=== PATIENT | male | born 1975 | race African-American/Black ===

== ENCOUNTER 2024-10-16 18:17 | Inpatient (IN) | payer OTHER, SELFPAY ==
[2024-10-16] VITALS (10 sets, daily range): BP systolic 94–116; BP diastolic 48–84; BMI 26.1
--- NOTE | 2024-10-16 11:50 | ED.GENMED ---
ED Provider Triage
<Cindy Foley PA-C - Last Filed: 10/16/24 11:51>
-
Patient seen by provider in Triage?: Seen in Triage
Attestation: A medical screening examination has been initiated by a qualified medical provider. Based on the assessment performed at this time, it has been determined that an emergent medical condition may exist and the patient has been informed
that further medical evaluation and possible additional diagnostic testing may be needed.
HPI: 49yoM here from [facility] after missing the last 3-4 dialysis session. Reportedly has been refusing his dialysis. C/o diffuse body swelling and SOB.
GENERAL: Alert , in no apparent distress
EYE: No visual abnormalities.
NECK: Trachea midline
ENT: No visible abnormalities.
LUNGS: No acute respiratory distress
NEUROLOGICAL: Alert and oriented
SKIN: Skin intact. No visible changes.
MUSCULOSKELETAL: Moving extremities normally
PSYCH: Normal and appropriate interaction.
This is a medical evaluation conducted in person to initiate diagnostic evaluation and provide initial therapeutics. Please see further documentation by the treating clinician.
CBC, CMP, EKG, and CXR ordered.
History of Present Illness
<Cindy Foley PA-C - Last Filed: 10/16/24 11:51>
General
Chief Complaint: Swelling
Time Seen by Provider: 10/16/24 13:44
<Abdifatah Bonilla PA-C - Last Filed: 10/16/24 16:23>
History of Present Illness
History of Present Illness:
49-year-old male with history of end-stage renal disease on dialysis, atrial fibrillation, CHF, and hypertension presents to the emergency department from [facility] due to refusal of dialysis for the past 2 sessions. Patient
states that he does not want dialysis because his leg hurts, when questioned whether he wants to be on hospice and therefore forego all further dialysis he states 'no'. States that he fell at the retirement 'the other day'. Poor historian
Review of Systems
<Abdifatah Bonilla PA-C - Last Filed: 10/16/24 16:23>
Review of Systems
Allergies reviewed?: Yes
All Other Systems: ROS reviewed and negative except as documented in HPI and ROS
Phy Exam
<Abdifatah Bonilla PA-C - Last Filed: 10/16/24 16:23>
Physical Exam
Physical Exam:
GEN: Chronically ill-appearing
HEENT: Oral mucosa moist, no scleral icterus
Cardiac: Regular rate
Lung: No respiratory distress, no tachypnea
MSK: Shortened and externally rotated left lower extremity tenderness to palpation of the thigh and left knee
Skin: Numerous areas of skin breakdown to the extremities
Neuro: AO x3, moves all extremities freely
Psych: Calm, cooperative
Scores
<Abdifatah Bonilla PA-C - Last Filed: 10/16/24 16:23>
Heart Failure Risk
Heart Failure Risk Score: Not Applicable
Course
<Cindy Foley PA-C - Last Filed: 10/16/24 11:51>
Orders/Labs/Results
Orders:
Orders
10/16/24 11:49
Electrocardiogram (*1) Urgent
Reason for Study: Other
Other Reason for Exam: missed dialysis
EKG- Treatment ONCE
CR Chest Single View Urgent
Reason For Exam: SOB
10/16/24 13:50
CR Hip - LT w/wo Pel 2-3 Vw* Urgent
Comment:
Reason For Exam: fall, leg pain
Include a pelvis x-ray?: Yes
CR Knee - Left 4 Or More View* Urgent
Comment:
Reason For Exam: fall
10/16/24 15:26
Complete Blood Count/With Diff Urgent
Comprehensive Metabolic Panel Urgent
10/16/24 16:18
Piperacillin/Tazo 3.375 Gram [Zosyn] 3.375 gram in 50 ml IV NOW
10/16/24 16:19
Dextrose 10%/Water 500 ml [D10w] 250 ml IV 250 mls/hr
Abnormal Lab Results
10/16/24
15:26
WBC 18.3 H 10^3/uL
(4.8-10.8)
RBC 3.17 L 10^6/uL
(4.70-6.10)
Hgb 8.8 L g/dL
(13.0-18.0)
Hct 29.2 L %
(39.0-52.0)
MCHC 30.1 L g/dL
(33.0-37.0)
RDW 16.5 H %
(11.5-14.5)
Abs Immat Gran (auto) 0.1 H 10^3/uL
(0-0.05)
Absolute Neuts (auto) 17.1 H 10^3/uL
(1.4-6.5)
Absolute Lymphs (auto) 0.4 L 10^3/uL
(1.2-3.4)
Immature Gran % 0.8 H %
(0-0.5)
Neutrophils % 93.5 H %
(42.2-75.2)
Lymphocytes % 2.2 L %
(20.5-51.1)
Potassium 5.7 H mmol/L
(3.5-5.1)
Chloride 95 L mmol/L
(98-107)
BUN 51 H mg/dl
(9-20)
Creatinine 7.4 H* mg/dL
(0.7-1.3)
Glucose 45 L* mg/dl
(70-99)
Calcium 8.0 L mg/dl
(8.4-10.2)
Alkaline Phosphatase 173 H U/L
(38-126)
Albumin 3.3 L g/dl
(3.5-5.0)
10/16/24 15:26
10/16/24 15:26
Vital Signs
Initial and Last Documented VS:
Initial Vital Signs
Pulse BP
89 108/53
10/16/24 13:44 10/16/24 13:44
Last Documented Vital Signs
Pulse Resp BP Pulse Ox
67 16 99/84 98
10/16/24 16:00 10/16/24 16:00 10/16/24 14:30 10/16/24 16:00
<Abdifatah Bonilla PA-C - Last Filed: 10/16/24 16:23>
Orders/Labs/Results
Orders:
Orders
10/16/24 11:49
Electrocardiogram (*1) Urgent
Reason for Study: Other
Other Reason for Exam: missed dialysis
EKG- Treatment ONCE
CR Chest Single View Urgent
Reason For Exam: SOB
10/16/24 13:50
CR Hip - LT w/wo Pel 2-3 Vw* Urgent
Comment:
Reason For Exam: fall, leg pain
Include a pelvis x-ray?: Yes
CR Knee - Left 4 Or More View* Urgent
Comment:
Reason For Exam: fall
10/16/24 15:26
Complete Blood Count/With Diff Urgent
Comprehensive Metabolic Panel Urgent
10/16/24 16:18
Piperacillin/Tazo 3.375 Gram [Zosyn] 3.375 gram in 50 ml IV NOW
10/16/24 16:19
Dextrose 10%/Water 500 ml [D10w] 250 ml IV 250 mls/hr
Abnormal Lab Results
10/16/24
15:26
WBC 18.3 H 10^3/uL
(4.8-10.8)
RBC 3.17 L 10^6/uL
(4.70-6.10)
Hgb 8.8 L g/dL
(13.0-18.0)
Hct 29.2 L %
(39.0-52.0)
MCHC 30.1 L g/dL
(33.0-37.0)
RDW 16.5 H %
(11.5-14.5)
Abs Immat Gran (auto) 0.1 H 10^3/uL
(0-0.05)
Absolute Neuts (auto) 17.1 H 10^3/uL
(1.4-6.5)
Absolute Lymphs (auto) 0.4 L 10^3/uL
(1.2-3.4)
Immature Gran % 0.8 H %
(0-0.5)
Neutrophils % 93.5 H %
(42.2-75.2)
Lymphocytes % 2.2 L %
(20.5-51.1)
Potassium 5.7 H mmol/L
(3.5-5.1)
Chloride 95 L mmol/L
(98-107)
BUN 51 H mg/dl
(9-20)
Creatinine 7.4 H* mg/dL
(0.7-1.3)
Glucose 45 L* mg/dl
(70-99)
Calcium 8.0 L mg/dl
(8.4-10.2)
Alkaline Phosphatase 173 H U/L
(38-126)
Albumin 3.3 L g/dl
(3.5-5.0)
10/16/24 15:26
10/16/24 15:26
Vital Signs
Initial and Last Documented VS:
Initial Vital Signs
Pulse BP
89 108/53
10/16/24 13:44 10/16/24 13:44
Last Documented Vital Signs
Pulse Resp BP Pulse Ox
67 16 99/84 98
10/16/24 16:00 10/16/24 16:00 10/16/24 14:30 10/16/24 16:00
<Abdifatah Bonilla PA-C - Last Filed: 10/16/24 16:23>
MDM/Problems Addressed
MDM/Problems Addressed:
Patient identified to have a closed left intertrochanteric hip fracture from a fall earlier this week, specific time of the fall is unknown. He has been skipping dialysis for at least the last 2 sessions and is mildly hypokalemic as well as
hypoglycemic at this time. No indication for urgent dialysis. D10 infusion started for hypoglycemia. Will be admitted to the hospitalist service for further management, nephrology consulted for dialysis management. Broad-spectrum IV antibiotics
started due to significant leukocytosis and severe sacral decubitus ulcers, suspecting active infection.
<Abdifatah Bonilla PA-C - Last Filed: 10/16/24 16:23>
*Critical Care Note
Total Time (30-74mins, 75-104mins- exclusive of procedures): Not Applicable
ED Attending Note
<Cindy Foley PA-C - Last Filed: 10/16/24 11:51>
-
Portions of this chart may have been created with voice recognition software.� Occasional wrong word or��sound alike� substitutions may have occurred due to the inherent limitations of voice recognition software.
Discharge Plan
Departure
Patient Disposition: Admit
Date of Disposition: 10/16/24
Time of Disposition: 16:22
Admit to: Med/Surg
Presentation/result/management discussed w/ accepting MD/DO: Hospitalist
Discharge Problem:
ESRD on dialysis, Acute hyperkalemia, Hypoglycemia, Sacral decubitus ulcer, stage IV, Closed intertrochanteric fracture of left femur
Prescriptions:
No Action
silver sulfadiazine [Silvadene] 1 % Cream
1 applic TOPICAL DAILY
acetaminophen [Tylenol] 325 mg Tablet
650 mg PO Q6HPRN PRN (Reason: mild pain)
atorvastatin [Lipitor] 20 mg Tablet
20 mg PO DAILY
polyethylene glycol 3350 [Miralax] 17 gram Powder In Packet
17 g PO DAILYPRN PRN (Reason: constipation)
quetiapine 200 mg Tablet
200 mg PO HS
midodrine 5 mg Tablet
5 mg PO TIDPRN PRN (Reason: low bp)
midodrine 5 mg Tablet
5 mg PO TID
omeprazole 40 mg Capsule,Delayed Release(Dr/Ec)
40 mg PO DAILY
lorazepam 0.5 mg Tablet
0.5 mg PO TID
bisacodyl [Dulcolax (bisacodyl)] 10 mg Suppository
10 mg CA DAILYPRN PRN (Reason: if no bm aftr mom)
calcium polycarbophil [FiberCon] 625 mg Tablet
625 mg PO DAILY
metoprolol tartrate [Lopressor] 50 mg Tablet
50 mg PO BID
sertraline 25 mg Tablet
25 mg PO DAILY
gabapentin 100 mg Capsule
100 mg PO MoWeFr@[id number]
hydroxychloroquine [Plaquenil] 200 mg Tablet
200 mg PO HS
diltiazem HCl 60 mg Tablet
60 mg PO BID
sertraline 50 mg Tablet
50 mg PO HS
cinacalcet 60 mg Tablet
60 mg PO BID
sevelamer carbonate 800 mg Tablet
800 mg PO TID
quetiapine [Seroquel] 100 mg Tablet
100 mg PO DAILY
Referrals:
Goldy Reynolds DO [Family Provider] -
Interventions
Interventions:
*Risk Screen - Suicide Last Done: 10/16/24 11:39
*Neglect/Abuse Screening Last Done: 10/16/24 11:39
ED- Fall Risk Assessment Last Done: 10/16/24 15:14
ED- Cardiac Assessment Last Done: 10/16/24 15:14
ED- Pulmonary Assessment Last Done: 10/16/24 15:14
ED-Skin Assessment Last Done: 10/16/24 15:14
Discharge Date and Time
Print Language: SPANISH
--- NOTE | 2024-10-16 14:30 | EDRN ---
Pt refusing IV team and IV access, refusing bloodwork. PCP aware.
[2024-10-16 16:01] LABS: % Basophils 0.5 % (0-2); % Eosinophils 0.1 % (0-6); % Immature Granulocytes 0.8 % (0-0.5); % Lymphocytes 2.2 % (20.5-51.1); % Monocytes 2.9 % (1.7-9.3); % Neutrophils 93.5 % (42.2-75.2); Absolute Basophils 0.1 10^3/uL (0-0.2); Absolute Immature Granulocytes 0.1 10^3/uL (0-0.05); Absolute Lymphocytes 0.4 10^3/uL (1.2-3.4); Absolute Monocytes 0.5 10^3/uL (0.1-0.6); Absolute Neutrophils 17.1 10^3/uL (1.4-6.5); Hematocrit 29.2 % (39.0-52.0); Hemoglobin 8.8 g/dL (13.0-18.0); Mean Corp Hgb Conc. 30.1 g/dL (33.0-37.0); Mean Corpuscular Hgb 27.8 pg (27.0-31.0); Mean Corpuscular Volume 92.1 fL (80.0-94.0); Mean Platelet Volume 9.9 fL (7.4-10.4); Nucleated Red Blood Cells % 0 % (-); Platelet Count 215 10^3/uL (130-400); Red Blood Cell Count 3.17 10^6/uL (4.70-6.10); Red Cell Dist. Width 16.5 % (11.5-14.5); White Blood Cell Count 18.3 10^3/uL (4.8-10.8)
[2024-10-16 16:18] LABS: ALT (SGPT) 12 U/L (0-50); AST (SGOT) 22 U/L (17-59); Albumin 3.3 g/dl (3.5-5.0); Alkaline Phosphatase 173 U/L (38-126); Blood Urea Nitrogen 51 mg/dl (9-20); Carbon Dioxide 27 mmol/L (22-30); Chloride 95 mmol/L (98-107); Glucose 45 mg/dl (70-99); Potassium 5.7 mmol/L (3.5-5.1); Sodium 135 mmol/L (135-145); Total Bilirubin 1.1 mg/dl (0.2-1.3); Total Protein 7.2 g/dl (6.3-8.2); eGFR 8.35
[2024-10-16] MEDS: D10W 250 IV (16:21)
[2024-10-16] MEDS: ZOSYN 50 IV (16:21)
--- NOTE | 2024-10-16 16:37 | W.CON.NEPH ---
Consultation
-
Date/Time Consultation Requested: 10/16/2024 4:30 PM
Date/Time Consultation Performed: 10/16/2024 4:30 PM
Requesting Provider: Chad
Performing Provider: Dr. Juan
Reason for Consultation: ESRD
Medical History
-
Chief Complaint: ESRD
History of Present Illness:
The patient is a 49-year-old male with a past medical history of end-stage renal disease who dialyzes at [facility] every Sunday and Sunday. The patient has not been dialyzed since last Sunday and had continuously refused dialysis because
his left leg hurt him. He is maintained chronically on midodrine for hypotension and statin therapy for dyslipidemia. He is maintained on sevelamer for his hyperphosphatemia. On presentation he has profound edema and was found to have a left
intra trochanteric hip fracture. Apparently there had been a fall at the nursing. We were consulted for his volume overload and ESRD. Upon questioning patient about his past medical history and his end-stage renal disease he told me to go away.
Past Medical History
End-stage renal disease Sunday at [facility]
CHF
Chronic hypotension
Anemia of chronic kidney disease
Hyperphosphatemia
Left upper extremity AV fistula
Secondary hyperparathyroidism
Anxiety
Social History
Patient would not provide social history and told me to leave
Family History
Patient refused to answer
Family History: Not Pertinent
Allergies / Home Medications
Allergy/AdvReac Type Severity Reaction Status Date / Time
shellfish derived Allergy Unknown Verified 10/16/24 11:48
�Medication �Instructions �Recorded �Confirmed �Type
acetaminophen 325 mg tablet 650 mg PO Q6HPRN PRN mild pain 10/16/24 10/16/24 History
(Tylenol)
atorvastatin 20 mg tablet (Lipitor) 20 mg PO DAILY 10/16/24 10/16/24 History
bisacodyl 10 mg rectal suppository 10 mg MA DAILYPRN PRN if no bm 10/16/24 10/16/24 History
(Dulcolax (bisacodyl)) aftr mom
calcium polycarbophil 625 mg 625 mg PO DAILY 10/16/24 10/16/24 History
tablet (FiberCon)
cinacalcet 60 mg tablet 60 mg PO BID 10/16/24 10/16/24 History
diltiazem HCl 60 mg tablet 60 mg PO BID 10/16/24 10/16/24 History
gabapentin 100 mg capsule 100 mg PO [id number]@[id number]/16/24 10/16/24 History
hydroxychloroquine 200 mg tablet 200 mg PO HS 10/16/24 10/16/24 History
(Plaquenil)
lorazepam 0.5 mg tablet 0.5 mg PO TID 10/16/24 10/16/24 History
metoprolol tartrate 50 mg tablet 50 mg PO BID 10/16/24 10/16/24 History
(Lopressor)
midodrine 5 mg tablet 5 mg PO TID 10/16/24 10/16/24 History
midodrine 5 mg tablet 5 mg PO TIDPRN PRN low bp 10/16/24 10/16/24 History
omeprazole 40 mg capsule,delayed 40 mg PO DAILY 10/16/24 10/16/24 History
release
polyethylene glycol 3350 17 gram 17 g PO DAILYPRN PRN constipation 10/16/24 10/16/24 History
oral powder packet (Miralax)
quetiapine 100 mg tablet (Seroquel) 100 mg PO DAILY 10/16/24 10/16/24 History
quetiapine 200 mg tablet 200 mg PO HS 10/16/24 10/16/24 History
sertraline 25 mg tablet 25 mg PO DAILY 10/16/24 10/16/24 History
sertraline 50 mg tablet 50 mg PO HS 10/16/24 10/16/24 History
sevelamer carbonate 800 mg tablet 800 mg PO TID 10/16/24 10/16/24 History
silver sulfadiazine 1 % topical 1 applic topical DAILY b/l lower 10/16/24 10/16/24 History
cream (Silvadene) extremeti
Review of Systems
-
Unable to obtain full review of systems at this time due to: Other (Patient told me to leave him alone)
History Source: Patient
All other systems: Negative unless noted
Respiratory: No Symptoms
Musculoskeletal: Edema and Other (Left leg pain)
Skin: Other (Sacral decubitus)
Physical Exam
Vital Signs
Vital Signs
Pulse Resp BP Pulse Ox
84 12 110/58 98
10/16/24 16:15 10/16/24 16:15 10/16/24 16:07 10/16/24 16:00
Lab Results
10/16/24 15:26
10/16/24 15:26
WBC 18.3 10^3/uL (4.8-10.8) H 10/16/24 15:26
RBC 3.17 10^6/uL (4.70-6.10) L 10/16/24 15:26
Hgb 8.8 g/dL (13.0-18.0) L 10/16/24 15:26
Hct 29.2 % (39.0-52.0) L 10/16/24 15:26
Plt Count 215 10^3/uL (130-400) 10/16/24 15:26
Sodium 135 mmol/L (135-145) 10/16/24 15:26
Potassium 5.7 mmol/L (3.5-5.1) H 10/16/24 15:26
Chloride 95 mmol/L (98-107) L 10/16/24 15:26
Carbon Dioxide 27 mmol/L (22-30) 10/16/24 15:26
BUN 51 mg/dl (9-20) H 10/16/24 15:26
Creatinine 7.4 mg/dL (0.7-1.3) H* 10/16/24 15:
eGFR 8.35 10/16/24 15:
Glucose 45 mg/dl (70-99) L* 10/16/24 15:
Calcium 8.0 mg/dl (8.4-10.2) L 10/16/24 15:
Albumin 3.3 g/dl (3.5-5.0) L 10/16/24 15:
Physical Exam
General: AOx3 and No Distress
HEENT: PERRL, EOMI, Anicteric, Conjunctivae Clear (Pale), Ear/Nose Intact, Hearing Normal, Facial Symmetry, Neck Supple and No JVD
Respiratory: Other (Coarse bilaterally with decreased breath sounds to bases)
Cardiac: Regular Rate/Rhythm
Breast: Deferred by me
Abdomen: Soft and Nontender
Rectal: Deferred by Provider
Musculoskeletal: Edema (Brawny pitting edema of lower extremity)
Skin: Dry (Brawny textured edematous lower extremities) and Other (Sacral decub)
Hematologic/Lymphatic: No Cervical Lymphadenopathy, No Submandibular Lymphadenopathy and No Supraclavicular Lymphadenopathy
Psych: Other (Patient angry and swatting me away from him)
Vascular Access: AVF (Left upper extremity with good thrill and bruit)
Data Reviewed
-
Radiology: Report Reviewed by me (Chest x-ray personally reviewed showed interstitial edema bilaterally)
Medical Tests (Nuc Med, Echo etc): Other (EKG reviewed junctional rhythm at 91 bpm)
Labs: Labs Reviewed by me (BMP CBC)
Assessment/Plan
-
Impression:
Left intratrochanteric hip fracture
ESRD Sunday at [facility]
Hypotension history
Hyperkalemia
Anemia of chronic kidney disease
Secondary hyperparathyroidism
Sacral decubitus
Hyperphosphatemia
Left upper extremity AV fistula
Congestive heart failure
Plan:
Patient presents to hospital due to refusal for dialysis since last Sunday but incidentally found to have left hip fracture ([facility])
Despite volume overload and hyperkalemia, there is no need for acute dialysis this evening but he will be dialyzed first thing tomorrow morning
His potassium level was slightly elevated at 5.7 and Lokelma can be administered at 10 g for 3 doses
Maintain fluid restriction of 1500 cc daily as well as low sodium and potassium diet
Provide midodrine in setting of chronic hypotension
Will provide Hd treatment tomorrow for obvious volume overload as hemodynamically tolerated;, orders provided
Patient noted to have significant volume overload on exam and by chest x-ray however he is not currently hypoxic or on Oxygen
WIL therapy to provided for anemia
Maintain sevelamer for hyperphosphatemia and Cinacalcet for secondary hyperparathyroidism
--- NOTE | 2024-10-16 16:38 | HPS.HSE ---
Addendum entered and electronically signed by Adam Tolentino MD 10/16/24 18:40:
I saw and examined the patient.
The OIL PIT ATTENDANT's note was reviewed and I agree with the note.
Comment:
49-year-old male past medical history of valvular disease, schizophrenia, ESRD on hemodialysis for 20 years, chronic sacral wound unknown stage, chronic lower extremity wound unknown stage, ambulatory dysfunction, neuropathy, primary hypertension,
hyperlipidemia, who is presenting from [facility] as he was refusal of hemodialysis. Patient was also complaining of left hip pain and was found in the ER the patient has left femur fracture. Patient agreed for hemodialysis. Currently patient
is stated he is irritated and does not want to move. Patient is a poor historian. Called patient's AUNT who is the medical power of energy attorney who was able to feel when other medical details. Prior and patient has recently been refusing
hemodialysis and she was unclear of etiology. Stated patient has history of schizophrenia as a result he was not a candidate for renal transplant. And will be coming in from [place] on Sunday.
General in no acute distress
HEENT-neck is supple trach is midline. Suspected cataracts
Cardiac S1-S2 positive for murmur
Lungs clear to auscultation anteriorly
Abdomen positive bowel sound soft nondistended nontender
Extremities bilateral lower extremity covered in Joseph wrap. Patient denied for wounds to to be assessed
Psych calm
Neuro awake. Did not cooperate for complete neurological examination. Suspected cognitive impairment
A/P
ESRD on hemodialysis
Chronic hypotension
Hyperkalemia
Plan for hemodialysis per nephrology
Continue with midodrine
Left femur fracture
Check EKG-noted with severely prolonged QTc.
Check echocardiogram
Bedrest till evaluation by orthopedic
Pain control
Hypoglycemia
Hypoglycemia noted on BMP
Recommend Accu-Cheks
Patient mentating appropriately.
Hypoglycemia protocol.
Schizophrenia disorder
Due to prolonged QTc hold sertraline and Seroquel for now and plaquenil
Continue with Ativan
If further medication needed can uptitrate Ativan and may need to consider psych evaluation
Sacral and lower extremity wound unknown stage
IV antibiotic
Check a set of blood cultures
Wound consult
Anemia of chronic disease
Trend hemoglobin. IV iron and EPO per nephrology
Transfuse with hemoglobin less than 7
Secondary hyperparathyroidism
Continue with Phos binder
DVT prophylaxis SCDs till till surgery
Full code
Discussed with patient aundee Gar who is medical POA in detail. Aunt lives in [place] and is planning to fly in on Sunday to patient.
I spent a total of 80 minutes with the patient or on the floor. More than 50% of this time involved counseling and coordination of care.
Original Note:
Family Physician
-
Family Physician: Goldy Reynolds, DO
Chief Complaint
-
HD refusal
History of Present Illness
Patient is a 49-year-old male with past medical history significant for end-stage renal disease on dialysis, hypertension, atrial flutter, iron deficiency anemia, cerebral palsy, and unspecified mood disorder who presented to [place] ED for
evaluation of diffuse body swelling and shortness of breath. Patient is not cooperative with assessment. States he has no complaints and 'was at dialysis the other day.'
Medical History
Past Medical History
Past Medical History: Reports Other
Additional Past Medical History:
end-stage renal disease with HD
hypertension
GERD
atrial flutter
renal osteodystrophy
impulse disorder
unspecified mood disorder
iron deficiency anemia
PICA in adults
cerebral palsy
arteriovenous fistula of pulmonary vessels
endocarditis
hypotension
unspecified asthma
cyst of pancreas
Past Surgical History: Reports None
Social History
Unable to obtain full social history at this time due to: Patient Non-verbal (non responsive to questioning with this provider)
Family History
Family History: Not pertinent
Allergies / Home Medications
Allergies reflects when Allergies were last updated in [facility].
Home Medications with original date entered in [facility]
Allergy/Medication List:
Allergies
Allergy/AdvReac Type Severity Reaction Status Date / Time
shellfish derived Allergy Unknown Verified 10/16/24 11:48
Home Medications
acetaminophen 325 mg tablet (Tylenol) 650 mg PO Q6HPRN PRN mild pain 10/16/24
atorvastatin 20 mg tablet (Lipitor) 20 mg PO DAILY 10/16/24
bisacodyl 10 mg rectal suppository (Dulcolax (bisacodyl)) 10 mg [place] DAILYPRN PRN if no bm aftr mom 10/16/24
calcium polycarbophil 625 mg tablet (FiberCon) 625 mg PO DAILY 10/16/24
cinacalcet 60 mg tablet 60 mg PO BID 10/16/24
diltiazem HCl 60 mg tablet 60 mg PO BID 10/16/24
gabapentin 100 mg capsule 100 mg PO MoWeFr@[id number]/16/24
hydroxychloroquine 200 mg tablet (Plaquenil) 200 mg PO HS 10/16/24
lorazepam 0.5 mg tablet 0.5 mg PO TID 10/16/24
metoprolol tartrate 50 mg tablet (Lopressor) 50 mg PO BID 10/16/24
midodrine 5 mg tablet 5 mg PO TID 10/16/24
midodrine 5 mg tablet 5 mg PO TIDPRN PRN low bp 10/16/24
omeprazole 40 mg capsule,delayed release 40 mg PO DAILY 10/16/24
polyethylene glycol 3350 17 gram oral powder packet (Miralax) 17 g PO DAILYPRN PRN constipation 10/16/24
quetiapine 100 mg tablet (Seroquel) 100 mg PO DAILY 10/16/24
quetiapine 200 mg tablet 200 mg PO HS 10/16/24
sertraline 25 mg tablet 25 mg PO DAILY 10/16/24
sertraline 50 mg tablet 50 mg PO HS 10/16/24
sevelamer carbonate 800 mg tablet 800 mg PO TID 10/16/24
silver sulfadiazine 1 % topical cream (Silvadene) 1 applic topical DAILY b/l lower extremeti 10/16/24
Review of Systems
-
History Source: Patient
Constitutional: Reports No Symptoms
EENT: Reports No Symptoms
Respiratory: Reports Other (shortness of breath)
Cardiac: Reports No Symptoms
Abdomen/GI: Reports No Symptoms
: Reports No Symptoms
Musculoskeletal: Reports No Symptoms
Skin: Reports No Symptoms
Neurological: Reports No Symptoms
Endocrine: Reports No Symptoms
Hematologic/Lymphatic: Reports No Symptoms
Psych: Reports No Symptoms
Physical Exam
Vital Signs
Vital Signs
Pulse Resp BP Pulse Ox
84 12 110/58 98
10/16/24 16:15 10/16/24 16:15 10/16/24 16:07 10/16/24 16:00
Physical Exam
General: Well Developed, Well Nourished, No Apparent Distress and Comfortable
HEENT: NormoCephalic, Moist mucous membranes, Atraumatic, [place] Conjunctivae, Nose Appears Normal and Ears Appear Normal
Respiratory: Clear and Non Labored Respirations
Cardiac: S1/S2, Regular Rhythm and Murmur; No Rub or Gallop
GI: Soft, Non Tender, Non Distended and Normal Bowel Sounds; No Organomegaly
Rectal: Deferred by Provider
Genito-urinary: Deferred by me
Musculoskeletal: No Clubbing, No Cyanosis and No Edema
Skin: Warm and IV/Catheter Site; No Rash
Neuro: Awake and Nonfocal/grossly intact
Psych: Calm
Laboratory Results
-
10/16/24 15:26
10/16/24 15:26
Laboratory Results
Total Bilirubin 1.1 mg/dl (0.2-1.3) 10/16/24 15:26
AST 22 U/L (17-59) 10/16/24 15:26
ALT 12 U/L (0-50) 10/16/24 15:26
Alkaline Phosphatase 173 U/L (38-126) H 10/16/24 15:26
Data Reviewed
-
Diagnostic Radiology: Report Reviewed by me (CXR, Hip, Knee)
Medical Tests (Nuc Med, Echo, EKG etc): Report Reviewed by me (ekg: ACCELERATED JUNCTIONAL RHYTHM RIGHT AXIS DEVIATION POSSIBLE RIGHT VENTRICULAR HYPERTROPHY NONSPECIFIC T WAVE ABNORMALITY)
Lab Data: Labs Reviewed by me (WBC 18.3, Hgb 8.8, hct 29.2, K 5.7, BUN 51, Creat 7.4, Glucose 45)
Impression/Plan
-
IMPRESSION/PLAN:
#End-stage renal disease with dialysis
#mild hyperkalemia
dialysis --
[facility] reports has refused at least last two sessions
K+ 5.7, BUN 51, Creat 7.4
- Admit to telemetry
- Consult Nephrology
- follow BMP
- low potassium/low sodium diet with 1500cc fluid restriction
#intertrochanteric fracture of the left proximal femur without significant displacement or angulation.
s/p fall this week, exact fall information not available
Hip X-ray: Intertrochanteric fracture of the left proximal femur without significant displacement or angulation
- consult ortho
#leukocytosis
WBC 18.3
suspected infected sacral decub
bilateral lower extremity wounds
- blood cultures
- IV Zosyn
#prolong QTc
EKG: Vent. Rate : 091 BPM Atrial Rate : 000 BPM
P-R Int : 000 ms QRS Dur : 086 ms
QT Int : 460 ms P-R-T Axes : 000 117 144 degrees
QTc Int : 565 ms
Critical Test Result: Long QTc
ACCELERATED JUNCTIONAL RHYTHM
RIGHT AXIS DEVIATION
POSSIBLE RIGHT VENTRICULAR HYPERTROPHY
NONSPECIFIC T WAVE ABNORMALITY
- hold QT prolonging medications (hydroxychloroquine, quetiapine, sertraline)
- ECHO
- repeat EKG in AM
#hypertension
currently controlled 115/60
- continue metoprolol
#GERD
- continue omeprazole
#atrial flutter
- continue metoprolol
#impulse disorder
#unspecified mood disorder
- hold quetiapine, sertraline
- lorazepam PRN
#iron deficiency anemia
hgb 8.8, Hct 29.2
- monitor H/H
#hypotension
- continue midodrine
#renal osteodystrophy
#cerebral palsy
Code Status: Full Code
DVT Prophylaxis: Lovenox Sq
[2024-10-16] MEDS: MAGNESIUM SULFATE 100 IV (17:30)
[2024-10-16 19:59] LABS: Glucose - Point of Care 84 mg/dl (70-99)
[2024-10-16] MEDS: LOKELMA 10 GRAM PO (20:40)
[2024-10-16] MEDS: CARDIZEM SR PO (22:46)
[2024-10-16] MEDS: RENVELA 800 MG PO (22:47)
[2024-10-16] MEDS: SENSIPAR 60 MG PO (22:47)
[2024-10-16] MEDS: TYLENOL 650 MG PO (22:48)
[2024-10-16] MEDS: ATIVAN PO (22:49)
[2024-10-17 03:32] VITALS: BP 102/56
[2024-10-17 03:49] LABS: Glucose - Point of Care 64 mg/dl (70-99)
[2024-10-17 04:09] LABS: Glucose - Point of Care 77 mg/dl (70-99)
[2024-10-17] MEDS: LOKELMA 10 GRAM PO ×2 (05:40→15:32)
[2024-10-17] MEDS: ZOSYN 50 IV ×2 (05:40→19:32)
[2024-10-17 06:00] VITALS: BMI 26.2
[2024-10-17] MEDS: TYLENOL 650 MG PO ×2 (06:16→10:53)
[2024-10-17 07:30] VITALS: BP 117/53
[2024-10-17 07:38] LABS: Glucose - Point of Care 105 mg/dl (70-99)
[2024-10-17] MEDS: ProAmatine 5 MG PO ×4 (08:36→19:32)
[2024-10-17] MEDS: PROTONIX 40 MG PO (08:38)
[2024-10-17] MEDS: FIBERCON 625 MG PO (08:38)
[2024-10-17] MEDS: RETACRIT 10000 UNITS IV (08:40)
--- NOTE | 2024-10-17 08:56 | W.PN.UPDATE ---
Update Note
Progress Note Update
Full H and P to follow
Patient was seen this a.m.; has a nondisplaced intertrochanteric femur fracture however reports he is primarily wheelchair at baseline with chronic wounds of his bilateral lower extremities and decubitus area. Patient is on dialysis and time of
evaluation relatively poor historian. Will further discussed with family member in chart as well with patient for consideration of nonoperative versus operative treatment given his ambulatory baseline and nondisplaced nature of this fracture
[2024-10-17 09:05] LABS: Hematocrit 24.4 % (39.0-52.0); Hemoglobin 7.7 g/dL (13.0-18.0); Mean Corp Hgb Conc. 31.6 g/dL (33.0-37.0); Mean Corpuscular Hgb 27.7 pg (27.0-31.0); Mean Corpuscular Volume 87.8 fL (80.0-94.0); Mean Platelet Volume 10.4 fL (7.4-10.4); Platelet Count 189 10^3/uL (130-400); Red Blood Cell Count 2.78 10^6/uL (4.70-6.10); Red Cell Dist. Width 15.9 % (11.5-14.5); White Blood Cell Count 10.1 10^3/uL (4.8-10.8)
[2024-10-17 09:25] LABS: ALT (SGPT) 11 U/L (0-50); AST (SGOT) 19 U/L (17-59); Albumin 2.8 g/dl (3.5-5.0); Alkaline Phosphatase 147 U/L (38-126); Blood Urea Nitrogen 57 mg/dl (9-20); Calcium 7.6 mg/dl (8.4-10.2); Carbon Dioxide 25 mmol/L (22-30); Chloride 95 mmol/L (98-107); Estimated Creatinine Clearance 10 ml/min; Glucose 103 mg/dl (70-99); Potassium 5.6 mmol/L (3.5-5.1); Sodium 131 mmol/L (135-145); Total Bilirubin 0.7 mg/dl (0.2-1.3); Total Protein 6.4 g/dl (6.3-8.2); eGFR 8.63
--- NOTE | 2024-10-17 09:25 | W.PN.NEPH.HD ---
Progress Note - Hemodialysis
-
Date of Service: October 17, 2024
Duration: 3 hours (3.5)
Potassium Bath: 2
Calcium Bath: 2.5
Opti-Dialyzer: 160
Ultrafiltration: EDW
Blood Flow: 400
Dialysate Flow: 600
EPO: 10,000 units
[2024-10-17 10:21] LABS: Hepatitis B Surface Antigen Negative (Negative)
[2024-10-17] MEDS: ATIVAN 0.5 MG PO ×3 (10:54→21:29)
[2024-10-17] MEDS: SENSIPAR 60 MG PO ×2 (10:56→21:29)
--- NOTE | 2024-10-17 10:57 | W.PN.HOSP.TC ---
Today's Communication/Plan
-
Hemodialysis today
Echo pending
Wound care evaluation
Will await further orthopedic recs
Assessment / Plan
Assessment / Plan
General in no acute distress, appears chronically ill
HEENT-neck is supple trach is midline. Suspected cataracts
Cardiac S1-S2 positive for murmur
Lungs clear to auscultation anteriorly
Abdomen positive bowel sound soft nondistended nontender
Extremities bilateral lower extremity covered in Joseph wrap. Patient denied for wounds to to be assessed
MSK Left shortened leg internally rotated. Left upper extremity AV fistula.
Psych calm but easily gets agitated.
Neuro awake. Did not cooperate for complete neurological examination. Suspected cognitive impairment
A/P
#ESRD on hemodialysis
#Chronic hypotension
#Hyperkalemia
Plan for hemodialysis per nephrology
Continue with midodrine
K of 5.6 should improve with HD today.
#Left femur fracture
Check EKG-noted with severely prolonged QTc.
Repeat EKG on 10/17 with normal sinus rhythm with first-degree AV block. Nonspecific T wave abnormality. QTc 487 significantly improved from admission.
Echo pending for preop risk stratification. Otherwise patient without any coronary artery disease, diabetes mellitus. History of end-stage renal disease on dialysis. Patient is wheelchair-bound and unclear to stratify mobility. Patient is
intermediate risk for intermediate surgery for medically necessary surgery pending echocardiogram finding.
Bedrest till evaluation by orthopedic
Pain control
#Hypoglycemia
#Hypoglycemia noted on BMP
Recommend Accu-Cheks
Patient mentating appropriately.
Hypoglycemia protocol.
#Schizophrenia disorder
QTc is improving. Can slowly restart sertraline and Seroquel for now and plaquenil in 24 to 48 hours.
Continue with Ativan
If further medication needed can uptitrate Ativan and may need to consider psych evaluation
#Sacral and lower extremity wound unknown stage-poa
IV antibiotic and probably de-escalate stop in next 24 hours.
Check a set of blood cultures
Wound consult
#Anemia of chronic disease
Trend hemoglobin. IV iron and EPO per nephrology
Transfuse with hemoglobin less than 7
#Chronic murmur and valvular disease
Await ECHO
Secondary hyperparathyroidism
Continue with Phos binder
#Primary HTN
Hold lopressor for now
Cont with cardizem with hold parameters
Chronic vision problem/cataracts
DVT prophylaxis SCDs till till surgery
Full code
Discussed with patient aunt Rin who is medical POA in detail on 10/16. Aunt lives in [place] and is planning to fly in on Sunday to patient
Anticipated Discharge: > 48 hours
Subjective/Interval History
-
Date of Service: October 17, 2024
pt seen on HD today
no overnight events
had bm overnight
Objective Data
-
Labs:
Laboratory Results
10/17/24
08:33
WBC 10.1
Hgb 7.7 L
Hct 24.4 L
Plt Count 189
Sodium 131 L
Potassium 5.6 H
Chloride 95 L
Carbon Dioxide 25
BUN 57 H
Creatinine 7.2 H*
Glucose 103 H
Calcium 7.6 L
Total Bilirubin 0.7
AST 19
ALT 11
Alkaline Phosphatase 147 H
Vital Signs:
Vital Signs
Temp Pulse Resp BP Pulse Ox
98.6 F 83 18 117/53 100
10/17/24 07:30 10/17/24 07:30 10/17/24 07:30 10/17/24 07:30 10/17/24 07:30
I&O
10/16/24 10/17/24 10/18/24
06:59 06:59 06:59
Intake Total 480 / 480
Balance 480 / 480
Data Reviewed
-
Total Time Spent with Patient (in minutes): 55
[2024-10-17 11:13] LABS: Glucose - Point of Care 84 mg/dl (70-99)
[2024-10-17 11:27] VITALS: BP 114/38
[2024-10-17] MEDS: CARDIZEM SR 60 MG PO ×2 (12:10→19:33)
[2024-10-17] MEDS: LIPITOR 20 MG PO (12:10)
[2024-10-17] MEDS: RENVELA PO (12:12)
--- NOTE | 2024-10-17 13:33 | WOUNDNOTE ---
LEGS AND FEET
--- NOTE | 2024-10-17 13:33 | WOUNDNOTE ---
R LATERAL POSTERIOR LEG
--- NOTE | 2024-10-17 13:35 | WOUNDNOTE ---
LAUREANO RN note: Patient admitted with healing stage 4 sacral ulcer, closed L femur fracture.
See H&P for complete history. [facility]
PMH: cerebral palsy, a Flutter, CHF, HTN, neuropathy, ESRD, dialysis M-W-F and Schizophrenia.
Wound Location and type/assessment: Patient admitted with: Healing sacral stage 4 PI reported from ER and B/L buttock ulcers, suspect stage 3 PI. Sacrum with small shallow pink opening, scarring surrounding. L and R buttock base mostly pink mixed
with murphy slough and shallow. No odor and small drainage. When removed elton wraps and kerlix from legs, no open wounds visible. No drainage and no edema of legs, just very dry flaky skin on legs and feet. R lateral foot with callus and a few on
plantar feet, no drainage. Heels are intact. Turning assist with nurse Walker and PCT. Patient complained of pain, requiring lots of reassurance to get wound care done.
Appetite: good
Pressure redistribution devices in place: Accumax, called for [facility] air bed nurse will switch bed.
Plan: Silvadene already on order, dressings changed to sacrum and buttocks. Will order mineral oil for legs. Patient refused protective heels foams and pillow under calves. Nurse Walker will try and place on later, supply at bedside.
Will confirm orders with hospitalist and updated nurse. Updated care plan and will follow as needed.
Note to case management of equipment requested for discharge: air mattress if doesn't have already.
[2024-10-17 15:20] VITALS: BP 137/70
[2024-10-17] MEDS: RENVELA 800 MG PO ×2 (15:32→19:37)
[2024-10-17 15:33] VITALS: BMI 26.2
[2024-10-17] MEDS: SILVADENE 1 APPLIC TOPICAL (15:33)
[2024-10-17 16:30] LABS: Glucose - Point of Care 89 mg/dl (70-99)
[2024-10-17] MEDS: NEURONTIN 100 MG PO (19:36)
[2024-10-17 19:37] VITALS: BP 128/69
[2024-10-17 21:17] LABS: Glucose - Point of Care 85 mg/dl (70-99)
[2024-10-17] MEDS: SENOKOT-S 1 TABLET PO (21:29)
[2024-10-17 23:41] VITALS: BP 111/64
[2024-10-18 03:26] VITALS: BP 127/68
[2024-10-18] MEDS: ZOSYN 50 IV (05:24)
[2024-10-18 06:00] VITALS: BMI 26.1
[2024-10-18 07:15] VITALS: BP 145/71
[2024-10-18 07:45] LABS: Hematocrit 29.1 % (39.0-52.0); Hemoglobin 9.2 g/dL (13.0-18.0); Mean Corp Hgb Conc. 31.6 g/dL (33.0-37.0); Mean Corpuscular Hgb 27.8 pg (27.0-31.0); Mean Corpuscular Volume 87.9 fL (80.0-94.0); Mean Platelet Volume 10.3 fL (7.4-10.4); Platelet Count 207 10^3/uL (130-400); Red Blood Cell Count 3.31 10^6/uL (4.70-6.10); Red Cell Dist. Width 15.9 % (11.5-14.5); White Blood Cell Count 8.7 10^3/uL (4.8-10.8)
[2024-10-18 07:49] LABS: Glucose - Point of Care 59 mg/dl (70-99)
[2024-10-18] MEDS: SENSIPAR 60 MG PO ×2 (08:14→20:22)
[2024-10-18 08:15] LABS: ALT (SGPT) 12 U/L (0-50); AST (SGOT) 19 U/L (17-59); Albumin 3.1 g/dl (3.5-5.0); Alkaline Phosphatase 165 U/L (38-126); Blood Urea Nitrogen 29 mg/dl (9-20); Calcium 7.7 mg/dl (8.4-10.2); Carbon Dioxide 29 mmol/L (22-30); Chloride 94 mmol/L (98-107); Estimated Creatinine Clearance 17 ml/min; Glucose 74 mg/dl (70-99); Potassium 4.4 mmol/L (3.5-5.1); Sodium 134 mmol/L (135-145); Total Bilirubin 0.9 mg/dl (0.2-1.3); eGFR 16.49
[2024-10-18] MEDS: ProAmatine 5 MG PO (08:19)
[2024-10-18] MEDS: FIBERCON 625 MG PO (08:20)
[2024-10-18] MEDS: CARDIZEM SR 60 MG PO ×2 (08:20→20:21)
[2024-10-18] MEDS: RENVELA 800 MG PO ×3 (08:21→20:22)
[2024-10-18] MEDS: ATIVAN 0.5 MG PO ×3 (08:21→21:29)
[2024-10-18] MEDS: SENOKOT-S 1 TABLET PO ×2 (08:21→20:22)
[2024-10-18] MEDS: HYDROPHOR 1 APPLIC TOPICAL (08:22)
[2024-10-18] MEDS: PROTONIX 40 MG PO (08:22)
[2024-10-18] MEDS: LIPITOR 20 MG PO (08:22)
[2024-10-18 08:47] LABS: Glucose - Point of Care 77 mg/dl (70-99)
--- NOTE | 2024-10-18 09:52 | W.PN.NEPH.PH ---
Today's Communication / Plan
-
Dialysis tomorrow as we are on a holiday schedule
Assessment/Plan
-
Impression:
Left intratrochanteric hip fracture
ESRD Sunday at [facility]
Hypotension history
Hyperkalemia
Anemia of chronic kidney disease
Secondary hyperparathyroidism
Sacral decubitus
Hyperphosphatemia
Left upper extremity AV fistula
Congestive heart failure
Plan:
Patient presents to hospital due to refusal for dialysis since last Sunday but incidentally found to have left hip fracture (suspected fall at long-term)
Maintain fluid restriction of 1500 cc daily as well as low sodium and potassium diet
Provide midodrine in setting of chronic hypotension
Patient noted to have significant volume overload on exam and by chest x-ray however he is not currently hypoxic or on Oxygen
WIL therapy to provided for anemia
Maintain sevelamer for hyperphosphatemia and Cinacalcet for secondary hyperparathyroidism
No acute need for dialysis today will dialyze tomorrow off schedule for holiday
-
-
Date of Service: October 18, 2024
CC / HPI / ROS
-
Chief Complaint:
ESRD
History of Present Illness:
Femur fracture
Review of Systems:
No chest pain shortness of breath nausea vomiting left hip pain
Labs
-
Labs:
WBC 8.7 10^3/uL (4.8-10.8) 10/18/24 07:27
RBC 3.31 10^6/uL (4.70-6.10) L 10/18/24 07:27
Hgb 9.2 g/dL (13.0-18.0) L 10/18/24 07:27
Hct 29.1 % (39.0-52.0) L 10/18/24 07:27
Plt Count 207 10^3/uL (130-400) 10/18/24 07:27
Sodium 134 mmol/L (135-145) L 10/18/24 07:27
Potassium 4.4 mmol/L (3.5-5.1) 10/18/24 07:27
Chloride 94 mmol/L (98-107) L 10/18/24 07:27
Carbon Dioxide 29 mmol/L (22-30) 10/18/24 07:27
BUN 29 mg/dl (9-20) H 10/18/24 07:27
Creatinine 4.2 mg/dL (0.7-1.3) H* 10/18/24 07:27
eGFR 16.49 10/18/24 07:27
Glucose 74 mg/dl (70-99) 10/18/24 07:27
Calcium 7.7 mg/dl (8.4-10.2) L 10/18/24 07:27
Albumin 3.1 g/dl (3.5-5.0) L 10/18/24 07:27
Physical Exam
-
Vital Signs:
Vital Signs
Temp Pulse Resp BP Pulse Ox
98.6 F 93 18 145/71 94
10/18/24 07:15 10/18/24 07:15 10/18/24 07:15 10/18/24 07:15 10/18/24 07:15
Respiratory:: Bilateral: CTA
Lung Excursion:: Normal
Abdomen:: Soft
Bowel Sounds:: Normal
Extremity Edema:: +1: Bilateral:
Mueller Catheter: No
[2024-10-18 11:01] LABS: Glucose - Point of Care 70 mg/dl (70-99)
[2024-10-18 11:24] VITALS: BP 158/128
--- NOTE | 2024-10-18 11:29 | CON.ORTHO ---
Consultation
-
Date/Time Consultation Requested: 10/16/241753
Date/Time Consultation Performed: 10/17/2024
Requesting Provider: CLAY Ramirez
Performing Provider: TRACY Queen, Dr. Betito Mcdonald
Reason for Consultation: Left hip fracture
Consultation - Orthopedics
History
49-year-old male with significant past medical history of valvular disease, schizophrenia, end-stage renal disease with chronic sacral wound ulcers and lower extremity ulcers with ambulatory dysfunction and neuropathy [facility]. He also complains of left hip pain and was noted upon radiographs to have a nondisplaced intertrochanteric femur fracture. He reports he has continued pain about his left hip. History initially try to obtain during
dialysis; further history try to be obtained on 18 October 2024 with patient reporting a fall in the past week off of his porch.
He has a wheelchair present and yesterday reports he is primarily his wheelchair but today (10/18) reports the partial weight bearing with a cane
Allergies / Home Medications
Past Medical History: Reports Other
Additional Past Medical History:
end-stage renal disease with HD
hypertension
GERD
atrial flutter
renal osteodystrophy
impulse disorder
unspecified mood disorder
iron deficiency anemia
PICA in adults
cerebral palsy
arteriovenous fistula of pulmonary vessels
endocarditis
hypotension
unspecified asthma
cyst of pancreas
Past Surgical History: Reports None
Allergy/AdvReac Type Severity Reaction Status Date / Time
shellfish derived Allergy Unknown Verified 10/16/24 11:48
�Medication �Instructions �Recorded
acetaminophen 325 mg tablet 650 mg PO Q6HPRN PRN mild pain 10/16/24
(Tylenol)
atorvastatin 20 mg tablet (Lipitor) 20 mg PO DAILY High Cholesterol 10/16/24
bisacodyl 10 mg rectal suppository 10 mg [place] DAILYPRN PRN if no bm 10/16/24
(Dulcolax (bisacodyl)) aftr mom
calcium polycarbophil 625 mg 625 mg PO DAILY Constipation 10/16/24
tablet (FiberCon)
cinacalcet 60 mg tablet 60 mg PO BID Thyroid 10/16/24
diltiazem HCl 60 mg tablet 60 mg PO BID Heart 10/16/24
Disease/Condition
gabapentin 100 mg capsule 100 mg PO MoWeFr@2000 Neurological 10/16/24
Condition
hydroxychloroquine 200 mg tablet 200 mg PO HS Autoimmune Disorder 10/16/24
(Plaquenil)
lorazepam 0.5 mg tablet 0.5 mg PO TID Mental Health/Anxiety 10/16/24
metoprolol tartrate 50 mg tablet 50 mg PO BID Blood Pressure 10/16/24
(Lopressor)
midodrine 5 mg tablet 5 mg PO TID Blood Pressure 10/16/24
midodrine 5 mg tablet 5 mg PO TIDPRN PRN low bp 10/16/24
omeprazole 40 mg capsule,delayed 40 mg PO DAILY Gastrointestinal 10/16/24
release Issue
polyethylene glycol 3350 17 gram 17 g PO DAILYPRN PRN constipation 10/16/24
oral powder packet (Miralax)
quetiapine 100 mg tablet (Seroquel) 100 mg PO DAILY Mental 10/16/24
Health/Anxiety
quetiapine 200 mg tablet 200 mg PO HS Mental Health/Anxiety 10/16/24
sertraline 25 mg tablet 25 mg PO DAILY Mental 10/16/24
Health/Anxiety
sertraline 50 mg tablet 50 mg PO HS Mental Health/Anxiety 10/16/24
sevelamer carbonate 800 mg tablet 800 mg PO TID Phosphate Binder 10/16/24
silver sulfadiazine 1 % topical 1 applic topical DAILY b/l lower 10/16/24
cream (Silvadene) extremeti
Vital Signs / Lab Results
Temp Pulse Resp BP Pulse Ox
98.0 F 94 18 158/128 100
10/18/24 11:24 10/18/24 11:24 10/18/24 11:24 10/18/24 11:24 10/18/24 11:24
Focused examination of the left lower extremity shows chronic flaking and variable ulcers of his bilateral lower extremities with muscle atrophy. Distal neuropathy. No significant limb length discrepancy. Skin about the left hip is intact.
Discomfort with mild hip range of motion
Radiographs: X-rays taken of the pelvis as well as left knee were reviewed showing vascular calcifications. Suspect diffuse osteopenia and a nondisplaced intertrochanteric femur fracture
10/18/24 07:27
10/18/24 07:27
Assessment / Plan
49-year-old male with multiple medical comorbidities but most significantly schizophrenia and poor historian with reported cerebral palsy as well as end-stage renal disease with suspected minimal ambulatory status secondary to sacral ulcers, leg
atrophy and neuropathy with a nondisplaced left acute intertrochanteric femur fracture
-As discussed previously with the patient he would be high risk for operative invention and the primary purpose of the surgery is to improve ambulatory status; he may be better indicated for nonoperative treatment pending further clarification of
his ambulatory baseline
-Power of real estate attorney reported to arrive Sunday; there is no operative urgency at this timeframe
-Will continue with further discussion for operative consideration however for the time being recommended for nonoperative treatment which includes 6 weeks of nonweightbearing to the left lower extremity
-Pain, diet, and DVT prophylaxis per primary
-Orthopedic surgery will continue to follow
--- NOTE | 2024-10-18 11:56 | W.PN.UPDATE ---
Update Note
Progress Note Update
Patient was seen today. More interactive however history likely unreliable. Will have further discussion with family but not urgent for operating room. Plan/recommendations as per consultation report for likely nonoperative pending confirmation
of his weightbearing status at baseline of nonambulatory likely monitoring with serial radiographs weekly
--- NOTE | 2024-10-18 12:02 | W.PN.HOSP.TC ---
Today's Communication/Plan
-
Orthopedic recs for surgery timing
Hemodialysis per nephrology
Assistance with feeding
Check EKG for QTc
Assessment / Plan
Assessment / Plan
General in no acute distress, appears chronically ill
HEENT-neck is supple trach is midline. Suspected cataracts
Cardiac S1-S2 positive for murmur
Lungs clear to auscultation anteriorly
Abdomen positive bowel sound soft nondistended nontender
Extremities bilateral lower extremity covered in Joseph wrap. Patient denied for wounds to to be assessed
MSK Left shortened leg internally rotated. Left upper extremity AV fistula.
Psych calm but easily gets agitated.
Neuro awake. Did not cooperate for complete neurological examination. Suspected cognitive impairment
A/P
#ESRD on hemodialysis
#Chronic hypotension
#Hyperkalemia
Plan for hemodialysis per nephrology
Continue with midodrine
K of 4.4
HD schedule per nephrology.
#Left femur fracture
Check EKG-noted with severely prolonged QTc
Repeat EKG on 10/17 with normal sinus rhythm with first-degree AV block. Nonspecific T wave abnormality. QTc 487 significantly improved from admission.
Otherwise patient without any coronary artery disease, diabetes mellitus. History of end-stage renal disease on dialysis. Patient is wheelchair-bound and unclear to stratify mobility. Patient is intermediate risk for intermediate surgery for
medically necessary surgery and can proceed whenever.
Bedrest till evaluation by orthopedic
Surgery TBD
Pain control
#Hypoglycemia
#Hypoglycemia noted on BMP
Recommend Accu-Cheks
Patient mentating appropriately.
Hypoglycemia protocol.
Encouarge feeding and assistance w/ feeding
#Schizophrenia disorder
QTc is improving. Can slowly restart sertraline and Seroquel for now and plaquenil in 24 to 48 hours.
Continue with Ativan
If further medication needed can uptitrate Ativan and may need to consider psych evaluation
Repeat EKG. If QTc stable restart Seroquel and sertraline
#Sacral stage IV pressure injury present on admission
#
IV antibiotic and probably de-escalate stop in next 24 hours.
Check a set of blood cultures
Wound consult
#Anemia of chronic disease
Trend hemoglobin. IV iron and EPO per nephrology
Transfuse with hemoglobin less than 7
# Chronic HFpEF
#severe valvular tricuspid regurgitation
#Pulmonary hypertension
Echo 10/17 with normal left ventricular chamber size and systolic function. Normal regional wall motion. EF 55/60%. Stage III diastolic dysfunction. Moderate to severe tricuspid regurgitation. PASP of 83 mmHg.
Secondary hyperparathyroidism
Continue with Phos binder
#Primary HTN
Hold lopressor for now
Cont with cardizem with hold parameters
Chronic vision problem/cataracts
DVT prophylaxis SCDs till till surgery
Full code
Discussed with patient aunt Rin who is medical POA in detail on 10/16. Aunt lives in [place] and is planning to fly in on Sunday to patient
Anticipated Discharge: > 48 hours
Subjective/Interval History
-
Date of Service: October 18, 2024
Patient more awake and interactive with
States of left hip pain
States he is hungry and wants to eat
Objective Data
-
Labs:
Laboratory Results
10/18/24
07:27
WBC 8.7
Hgb 9.2 L
Hct 29.1 L
Plt Count 207
Sodium 134 L
Potassium 4.4
Chloride 94 L
Carbon Dioxide 29
BUN 29 H
Creatinine 4.2 H*
Glucose 74
Calcium 7.7 L
Total Bilirubin 0.9
AST 19
ALT 12
Alkaline Phosphatase 165 H
Vital Signs:
Vital Signs
Temp Pulse Resp BP Pulse Ox
98.0 F 94 18 158/128 100
10/18/24 11:24 10/18/24 11:24 10/18/24 11:24 10/18/24 11:24 10/18/24 11:24
I&O
10/17/24 10/18/24 10/19/24
06:59 06:59 06:59
Intake Total 480 / 480 1060 / 1060
Balance 480 / 480 1060 / 1060
Data Reviewed
-
Total Time Spent with Patient (in minutes): 55
[2024-10-18] MEDS: SILVADENE 1 APPLIC TOPICAL (12:49)
--- NOTE | 2024-10-18 13:11 | CM ---
CM reviewed chart, patient LTC resident at [facility], referral placed in [facility]. VM left for Beth, admissions at [facility] to review PLOF. Patient receives HD at facility, wheelchair bound. Orthopedic surgery following. Patients Aunt, POA, to
fly in Sunday. CM will continue to follow for all discharge planning needs.
Plan; return to [facility] LT when medically stable
[2024-10-18] MEDS: ProAmatine PO ×2 (13:49→17:19)
--- NOTE | 2024-10-18 14:56 | W.PN.UPDATE ---
Update Note
Progress Note Update
Patient seen and examined. Patient is a 49 yo male admitted from [facility] after refusing dialysis. Complained of left hip pain and radiographs revealed a nondisplaced left intertrochanteric hip fracture. Patient is communicating
but not focused and agree with suspected cognitive impairment. History obtained from POA (Aunt Rin) as well as nursing staff. Appears that the patient has not been ambulatory for some period of time due to his decubiti and possibly some early
contractures. Does complain of pain of the left hip and has pain associated with hygiene care. Patient appears cachetic. Patient with superficial decubiti about the sacrum and ischial tuberosities. Left leg shortened and externally rotated. Skin
about his lower extremities reveal wounds but no drainage. I spoke with his Aunt who requested that his hip be repaired surgically so that he could get rehab to walk again. I told her that I did not think ambulation was a realistic expectation and
that surgery could be performed with the many inherent risks and potential complications associated with surgery and his comorbities to try to alleviate pain to allow for nursing care. I have spoken with the lead dialysis nurse today. She states
that he will receive dialysis on Sunday and Sunday. His aunt will be visiting him on Sunday and I would like for her to see him prior to surgery as she stated that he was walking the last time she saw him. We will tentatively schedule surgery for
Sunday afternoon following dialysis.
[2024-10-18 15:55] VITALS: BP 122/59
[2024-10-18 17:22] LABS: Glucose - Point of Care 147 mg/dl (70-99)
[2024-10-18 19:30] VITALS: BP 125/62
[2024-10-18 21:26] LABS: Glucose - Point of Care 94 mg/dl (70-99)
[2024-10-18 23:38] VITALS: BP 124/64
[2024-10-19 03:30] VITALS: BP 148/72
[2024-10-19 06:00] VITALS: BMI 26.3
[2024-10-19] MEDS: ProAmatine 5 MG PO (07:45)
[2024-10-19 07:59] VITALS: BP 128/62
[2024-10-19 08:31] LABS: Glucose - Point of Care 85 mg/dl (70-99)
[2024-10-19 09:06] LABS: Hematocrit 24.6 % (39.0-52.0); Hemoglobin 7.8 g/dL (13.0-18.0); Mean Corp Hgb Conc. 31.7 g/dL (33.0-37.0); Mean Corpuscular Volume 88.2 fL (80.0-94.0); Mean Platelet Volume 9.9 fL (7.4-10.4); Platelet Count 254 10^3/uL (130-400); Red Blood Cell Count 2.79 10^6/uL (4.70-6.10); Red Cell Dist. Width 15.7 % (11.5-14.5); White Blood Cell Count 10.3 10^3/uL (4.8-10.8)
[2024-10-19 09:08] LABS: ALT (SGPT) 10 U/L (0-50); AST (SGOT) 17 U/L (17-59); Albumin 2.9 g/dl (3.5-5.0); Alkaline Phosphatase 150 U/L (38-126); Blood Urea Nitrogen 34 mg/dl (9-20); Calcium 7.7 mg/dl (8.4-10.2); Carbon Dioxide 28 mmol/L (22-30); Chloride 94 mmol/L (98-107); Estimated Creatinine Clearance 15 ml/min; Glucose 76 mg/dl (70-99); Potassium 4.6 mmol/L (3.5-5.1); Sodium 132 mmol/L (135-145); Total Bilirubin 0.7 mg/dl (0.2-1.3); Total Protein 6.7 g/dl (6.3-8.2)
[2024-10-19] MEDS: RETACRIT 10000 UNITS IV (09:29)
[2024-10-19] MEDS: TYLENOL 650 MG PO ×2 (10:10→16:44)
--- NOTE | 2024-10-19 10:22 | W.PN.ORTHO ---
Today's Communication / Plan
-
49-year-old male with multiple medical comorbidities but most significantly schizophrenia and poor historian with reported cerebral palsy as well as end-stage renal disease with suspected minimal ambulatory status secondary to sacral ulcers, leg
atrophy and neuropathy with a nondisplaced left acute intertrochanteric femur fracture
-See update note of Dr. Mcdonald- pending further discussion with pt and family/POA (his aunt) expected tomorrow for possible OR Sunday with Dr. Mcdonald for left hip fixation.
-Pain, diet, and DVT prophylaxis per primary
-Orthopedic surgery will continue to follow
Assessment
.
Dressing:
Clean, dry and intact.
Plan
.
Activity:
Out of bed.
PT/OT
Subjective
.
.:
Patient resting comfortably. On dialysis at time of rounding
Vital Signs and Labs
.
Vital Signs and Labs:
Lab Results
10/19/24 08:10
10/19/24 08:10
Temp Pulse Resp BP Pulse Ox
98.4 F 80 18 128/62 91
10/19/24 07:59 10/19/24 07:59 10/19/24 07:59 10/19/24 07:59 10/19/24 07:59
[2024-10-19 11:07] VITALS: BP 134/59
[2024-10-19 11:18] LABS: Glucose - Point of Care 94 mg/dl (70-99)
--- NOTE | 2024-10-19 12:06 | W.PN.NEPH.HD ---
Progress Note - Hemodialysis
-
Date of Service: October 19, 2024
Duration: 3 hours (3.5)
Potassium Bath: 2
Calcium Bath: 2.5
Opti-Dialyzer: 160
Ultrafiltration: EDW
Blood Flow: 400
Dialysate Flow: 600
EPO: 10,000 units
[2024-10-19] MEDS: ATIVAN PO (12:37)
[2024-10-19] MEDS: SENOKOT-S 1 TABLET PO ×2 (12:45→21:23)
[2024-10-19] MEDS: SENSIPAR 60 MG PO ×2 (12:45→22:56)
[2024-10-19] MEDS: RENVELA 800 MG PO ×3 (12:46→21:23)
[2024-10-19] MEDS: FIBERCON 625 MG PO (12:46)
[2024-10-19] MEDS: LIPITOR 20 MG PO (12:46)
[2024-10-19] MEDS: PROTONIX 40 MG PO (12:46)
[2024-10-19] MEDS: ProAmatine PO ×2 (12:47→16:44)
[2024-10-19] MEDS: SILVADENE 1 APPLIC TOPICAL (12:49)
[2024-10-19] MEDS: HYDROPHOR 1 APPLIC TOPICAL (12:51)
[2024-10-19] MEDS: CARDIZEM SR 60 MG PO ×2 (12:52→21:23)
--- NOTE | 2024-10-19 13:02 | W.PN.HOSP.TC ---
Today's Communication/Plan
-
OR tentative sunday
bedrest till surgery
HD per nephro
Trend cbc
restart Seroquel for severe mood disorder
Assessment / Plan
Assessment / Plan
General in no acute distress, appears chronically ill
HEENT-neck is supple trach is midline. Suspected cataracts
Cardiac S1-S2 positive for murmur
Lungs clear to auscultation anteriorly
Abdomen positive bowel sound soft nondistended nontender
Extremities bilateral lower extremity dry skin.
MSK Left shortened leg internally rotated. Left upper extremity AV fistula.
Psych calm but easily gets agitated.
Neuro awake. Did not cooperate for complete neurological examination. Suspected cognitive impairment
A/P
#ESRD on hemodialysis
#Chronic hypotension
#Hyperkalemia
Plan for hemodialysis per nephrology
Continue with midodrine
HD schedule per nephrology. Blood pressure holding. Plan for volume removal on dialysis.
#Left femur fracture
Check EKG-noted with severely prolonged QTc
Repeat EKG on 10/17 with normal sinus rhythm with first-degree AV block. Nonspecific T wave abnormality. QTc 487 significantly improved from admission.
Otherwise patient without any coronary artery disease, diabetes mellitus. History of end-stage renal disease on dialysis. Patient is wheelchair-bound and unclear to stratify mobility. Patient is intermediate risk for intermediate surgery for
medically necessary surgery and can proceed and monitor closely postop.
Bedrest till evaluation by orthopedic
Surgery tentative plan for sunday
Pain control
#Hypoglycemia
#Hypoglycemia noted on BMP
Recommend Accu-Cheks
Patient mentating appropriately.
Hypoglycemia protocol.
Encourage feeding and assistance w/ feeding
#Schizophrenia disorder
QTc is improving. Can slowly restart sertraline and plaquenil in 24 to 48 hours.
Continue with Ativan
If further medication needed can uptitrate Ativan and may need to consider psych evaluation
Repeat EKG with stable QTc of 469. Restart Seroquel on high dose 100mg AM/200mg PM.
#Sacral stage IV pressure injury present on admission
# Bilateral buttocks ulcer suspected stage III PI POA
Blood cultures negative. Stop IV antibiotics.
Wound consult
#Anemia of chronic disease
Trend hemoglobin. IV iron and EPO per nephrology
Transfuse with hemoglobin less than 7
# Chronic HFpEF
#severe valvular tricuspid regurgitation
#Pulmonary hypertension
Echo 10/17 with normal left ventricular chamber size and systolic function. Normal regional wall motion. EF 55/60%. Stage III diastolic dysfunction. Moderate to severe tricuspid regurgitation. PASP of 83 mmHg.
Secondary hyperparathyroidism
Continue with Phos binder
#Primary HTN
Hold lopressor for now
Cont with cardizem with hold parameters
Chronic vision problem/cataracts
DVT prophylaxis SCDs till till surgery
Full code
Discussed with patient aunt Rin who is medical POA in detail on 10/16. Aunt lives in [place] and is planning to come in [facility] to see patient and d/w with orthopedic
Anticipated Discharge: > 48 hours
Subjective/Interval History
-
Date of Service: October 19, 2024
seen on HD
intermittent left hip pain
wants vic
Objective Data
-
Labs:
Laboratory Results
10/19/24
08:10
WBC 10.3
Hgb 7.8 L
Hct 24.6 L
Plt Count 254 D
Sodium 132 L
Potassium 4.6
Chloride 94 L
Carbon Dioxide 28
BUN 34 H
Creatinine 4.9 H*
Glucose 76
Calcium 7.7 L
Total Bilirubin 0.7
AST 17
ALT 10
Alkaline Phosphatase 150 H
Vital Signs:
Vital Signs
Temp Pulse Resp BP Pulse Ox
98.3 F 91 20 134/59 94
10/19/24 11:07 10/19/24 11:07 10/19/24 11:07 10/19/24 11:07 10/19/24 11:07
I&O
10/18/24 10/19/24 10/20/24
06:59 06:59 06:59
Intake Total 1060 / 1060 240 / 240
Balance 1060 / 1060 240 / 240
Data Reviewed
-
Total Time Spent with Patient (in minutes): 55
[2024-10-19 15:03] VITALS: BP 124/73
[2024-10-19] MEDS: ATIVAN 0.5 MG PO ×2 (15:53→21:23)
[2024-10-19 15:54] LABS: Glucose - Point of Care 77 mg/dl (70-99)
[2024-10-19 19:45] VITALS: BP 130/59
[2024-10-19] MEDS: DILAUDID 0.25 MG IV (20:33)
[2024-10-19] MEDS: SEROQUEL 200 MG PO (21:23)
[2024-10-19 21:56] LABS: Glucose - Point of Care 84 mg/dl (70-99)
[2024-10-19 23:17] VITALS: BP 136/67
[2024-10-20 03:02] VITALS: BP 101/51
[2024-10-20 06:00] VITALS: BMI 25.9
[2024-10-20] MEDS: DILAUDID 0.25 MG IV ×2 (06:15→11:51)
[2024-10-20 07:37] VITALS: BP 100/52
[2024-10-20] MEDS: RENVELA 800 MG PO ×3 (08:01→21:42)
[2024-10-20] MEDS: SENOKOT-S 1 TABLET PO ×2 (08:01→21:42)
[2024-10-20] MEDS: SENSIPAR 60 MG PO ×2 (08:01→21:42)
[2024-10-20] MEDS: FIBERCON 625 MG PO (08:01)
[2024-10-20] MEDS: LIPITOR 20 MG PO (08:01)
[2024-10-20] MEDS: PROTONIX 40 MG PO (08:01)
[2024-10-20] MEDS: ATIVAN 0.5 MG PO ×3 (08:01→21:41)
[2024-10-20] MEDS: SEROQUEL 100 MG PO (08:01)
[2024-10-20] MEDS: ProAmatine 5 MG PO ×2 (08:02→17:15)
[2024-10-20] MEDS: CARDIZEM SR PO (08:02)
[2024-10-20 08:04] LABS: Glucose - Point of Care 121 mg/dl (70-99)
[2024-10-20] MEDS: HYDROPHOR 1 APPLIC TOPICAL (08:04)
[2024-10-20] MEDS: SILVADENE 1 APPLIC TOPICAL (08:06)
--- NOTE | 2024-10-20 10:14 | W.PN.HOSP.TC ---
Today's Communication/Plan
-
Doppler ultrasound bilateral lower extremities
N.p.o. after midnight
Assessment / Plan
Assessment / Plan
General in no acute distress, appears chronically ill
HEENT-neck is supple trach is midline. Suspected cataracts
Cardiac S1-S2 positive for murmur
Lungs clear to auscultation anteriorly
Abdomen positive bowel sound soft nondistended nontender
Extremities bilateral lower extremity dry skin. Significant bilateral lower extremity edema, worse on the left
MSK Left shortened leg internally rotated. Left upper extremity AV fistula.
Psych calm but easily gets agitated.
Neuro awake. Did not cooperate for complete neurological examination. Suspected cognitive impairment
ESRD on hemodialysis
Chronic hypotension
Hyperkalemia
Plan for hemodialysis per nephrology
Continue with midodrine
HD schedule per nephrology. Blood pressure holding. Plan for volume removal on dialysis.
Acute Left femur fracture
Check EKG-noted with severely prolonged QTc
Repeat EKG on 10/17 with normal sinus rhythm with first-degree AV block. Nonspecific T wave abnormality. QTc 487 significantly improved from admission.
Otherwise patient without any coronary artery disease, diabetes mellitus. History of end-stage renal disease on dialysis. Patient is wheelchair-bound and unclear to stratify mobility. Patient is intermediate risk for intermediate surgery for
medically necessary surgery and can proceed and monitor closely postop.
Bedrest till evaluation by orthopedic
Surgery tentative plan for sunday
Pain control
Check Doppler ultrasound bilateral lower extremity given significant edema.
Hypoglycemia
Hypoglycemia noted on BMP
Recommend Accu-Cheks
Patient mentating appropriately.
Hypoglycemia protocol.
Encourage feeding and assistance w/ feeding
Schizophrenia disorder
QTc is improving. Can slowly restart sertraline and plaquenil in 24 to 48 hours.
Continue with Ativan
If further medication needed can uptitrate Ativan and may need to consider psych evaluation
Repeat EKG with stable QTc of 469. Restart Seroquel on high dose 100mg AM/200mg PM.
Sacral stage IV pressure injury present on admission
Bilateral buttocks ulcer suspected stage III PI POA
Blood cultures negative. Stop IV antibiotics.
Wound consult
Chronic anemia due to ESRD
Trend hemoglobin. IV iron and EPO per nephrology
Transfuse with hemoglobin less than 7
Chronic HFpEF
Severe valvular tricuspid regurgitation
Pulmonary hypertension
Echo 10/17 with normal left ventricular chamber size and systolic function. Normal regional wall motion. EF 55/60%. Stage III diastolic dysfunction. Moderate to severe tricuspid regurgitation. PASP of 83 mmHg.
Secondary hyperparathyroidism
Continue with Phos binder
Essential HTN
Hold lopressor for now
Cont with cardizem with hold parameters
Chronic vision problem/cataracts
DVT prophylaxis SCDs till till surgery
Full code
Dr. Tolentino discussed with patient aunt Rin who is medical POA in detail on 10/16. Aunt lives in [place] and is planning to come in today to see patient and d/w with orthopedic
Anticipated Discharge: > 48 hours
Subjective/Interval History
-
Date of Service: October 20, 2024
Patient seen and examined. No complaints.
Objective Data
-
Vital Signs:
Vital Signs
Temp Pulse Resp BP Pulse Ox
98.7 F 97 20 100/52 93
10/20/24 07:37 10/20/24 07:37 10/20/24 07:37 10/20/24 08:02 10/20/24 07:37
I&O
10/19/24 10/20/24 10/21/24
06:59 06:59 06:59
Intake Total 240 / 240 1320 / 1320
Output Total 0 / 0
Balance 240 / 240 1320 / 1320
Review of Systems
-
History Source: Patient
All other systems: Reviewed and negative
[2024-10-20 10:35] VITALS: BP 126/71
--- NOTE | 2024-10-20 10:41 | W.PN.UPDATE ---
Addendum entered and electronically signed by Betito Mcdonald MD 10/20/24 13:09:
Patient seen and examined. No significant changes. Spoke with Aunt who is POA who is enroute to see the patient. I have spoken at length with her and requested that she see the patient prior to surgery. I have spoken to Dr. Barrientos about timing
with hemodialysis and surgery. Current plan is for surgery tomorrow after dialysis pending Aunt's visit today. Risks, complications, benefits and postop expectations discussed with his Aunt. Anesthesia notified that they may want to evaluate the
patient prior to anticipated surgery tomorrow. Consent signed by myself and on the chart. Aunt to sign consent on visit and knows that I can be contacted if she has any further questions. Patient is NPO for surgery.
Original Note:
Update Note
Progress Note Update
Mr. Baron was minimally conversational and focused this AM. He is a 49-year-old male with multiple medical comorbidities, most significantly schizophrenia and ESRD. He is a poor historian with suspected minimal ambulatory status secondary to
sacral ulcers, leg atrophy and neuropathy,with a nondisplaced left acute intertrochanteric femur fracture
Again, please see progress note from Dr. Mcdonald (Oct 21 @ [id number])- pending further discussion with pt and family/POA (his aunt Rin), who is expected in town today to see her nephew. Will have a tentative plan for (possible) OR tomorrow (Sunday)
with Dr. Mcdonald for left hip fixation. I have made him NPO pMN tonight in anticipation of surgery tomorrow. Will make sure to consent for surgery/blood once his Aunt/POA (Rin) is able to see him and make a final decision. Orthopedic surgery will
continue to follow
[2024-10-20 11:47] LABS: Glucose - Point of Care 135 mg/dl (70-99)
[2024-10-20 13:49] VITALS: BP 127/78
[2024-10-20] MEDS: ProAmatine PO (13:49)
--- NOTE | 2024-10-20 14:43 | CM ---
CM reviewed chart, per Beth, Admissions at [facility], patient is not LTC, in process of becoming LTC resident, facility is working with Aunt on this. [facility] requesting auth for patient to return, will need PT/OT orders: JESSICA [place] [facility]:
[phone], Dr. Reynolds: [phone]. Per chart, patient for tentative OR tomorrow. CM will continue to follow for all discharge planning needs.
Plan; return to [facility] when medically stable, will need insurance auth
[facility]: [id number], Dr. Reynolds: [id number]
[2024-10-20] MEDS: TYLENOL 650 MG PO ×2 (15:37→21:42)
[2024-10-20 16:19] VITALS: BP 117/58
[2024-10-20 16:37] LABS: Glucose - Point of Care 79 mg/dl (70-99)
--- NOTE | 2024-10-20 18:21 | W.PN.NEPH.PH ---
Today's Communication / Plan
-
HD tomorrow
Assessment/Plan
-
Impression:
Left intratrochanteric hip fracture
ESRD Sunday at [facility]
Hypotension history
Hyperkalemia
Anemia of chronic kidney disease
Secondary hyperparathyroidism
Sacral decubitus
Hyperphosphatemia
Left upper extremity AV fistula
Congestive heart failure
Plan:
Patient presents to hospital due to refusal for dialysis but incidentally found to have left hip fracture (suspected fall at assisted)
plan HD tomorrow and OR after for hip surg-d/w ortho
Maintain fluid restriction of 1200 cc daily as well as low sodium and potassium diet
cont midodrine in setting of chronic hypotension
vol status seem stable on RA, CXR noted on admit
WIL therapy to provided for anemia
Maintain sevelamer for hyperphosphatemia and Cinacalcet for secondary hyperparathyroidism
-
-
Date of Service: October 20, 2024
CC / HPI / ROS
-
Chief Complaint:
ESRD
History of Present Illness:
Femur fracture
no fever, last hb 7.8 10/19
BP stable
Review of Systems:
No nausea vomiting
left hip pain-refuses to touched in legs
poor historian
Labs
-
Labs:
WBC 10.3 10^3/uL (4.8-10.8) 10/19/24 08:10
RBC 2.79 10^6/uL (4.70-6.10) L 10/19/24 08:10
Hgb 7.8 g/dL (13.0-18.0) L 10/19/24 08:10
Hct 24.6 % (39.0-52.0) L 10/19/24 08:10
Plt Count 254 10^3/uL (130-400) D 10/19/24 08:10
Sodium 132 mmol/L (135-145) L 10/19/24 08:10
Potassium 4.6 mmol/L (3.5-5.1) 10/19/24 08:10
Chloride 94 mmol/L (98-107) L 10/19/24 08:10
Carbon Dioxide 28 mmol/L (22-30) 10/19/24 08:10
BUN 34 mg/dl (9-20) H 10/19/24 08:10
Creatinine 4.9 mg/dL (0.7-1.3) H* 10/19/24 08:10
eGFR 13.70 10/19/24 08:10
Glucose 76 mg/dl (70-99) 10/19/24 08:10
Calcium 7.7 mg/dl (8.4-10.2) L 10/19/24 08:10
Albumin 2.9 g/dl (3.5-5.0) L 10/19/24 08:10
Physical Exam
-
Vital Signs:
Vital Signs
Temp Pulse Resp BP Pulse Ox
98.3 F 103 20 117/58 96
10/20/24 16:19 10/20/24 16:19 10/20/24 16:19 10/20/24 17:15 10/20/24 16:19
Cardiovascular:: Regular rate and rhythm
Respiratory:: Bilateral: CTA (anteriorly)
Lung Excursion:: Normal
Abdomen:: Nontender and Soft
Extremity Edema:: +1: Bilateral:
Mueller Catheter: No
[2024-10-20 19:50] VITALS: BP 122/62
[2024-10-20] MEDS: CARDIZEM SR 60 MG PO (21:42)
[2024-10-20] MEDS: SEROQUEL 200 MG PO (21:42)
[2024-10-20] MEDS: NEURONTIN 100 MG PO (21:48)
[2024-10-20 22:08] LABS: Glucose - Point of Care 188 mg/dl (70-99)
[2024-10-21] VITALS (18 sets, daily range): BP systolic 96–155; BP diastolic 45–109; BMI 25.9
[2024-10-21 05:38] LABS: Glucose - Point of Care 79 mg/dl (70-99)
--- NOTE | 2024-10-21 06:27 | PTCARENOTE ---
pt washed and chg wipes completed. wound care completed. pt accucheck 78.
[2024-10-21] MEDS: LIPITOR 20 MG PO (07:13)
[2024-10-21] MEDS: ProAmatine 5 MG PO (07:13)
[2024-10-21] MEDS: PROTONIX 40 MG PO (07:13)
[2024-10-21] MEDS: CARDIZEM SR PO (07:14)
[2024-10-21] MEDS: HYDROPHOR TOPICAL (07:14)
[2024-10-21] MEDS: ATIVAN PO ×2 (07:14→17:42)
[2024-10-21] MEDS: RENVELA PO ×2 (07:15→17:42)
[2024-10-21] MEDS: FIBERCON PO (07:15)
[2024-10-21] MEDS: SENOKOT-S PO (07:15)
[2024-10-21] MEDS: SILVADENE TOPICAL (07:16)
[2024-10-21] MEDS: SEROQUEL PO (07:16)
[2024-10-21] MEDS: SENSIPAR PO (07:16)
--- NOTE | 2024-10-21 07:46 | W.PN.UPDATE ---
Update Note
Progress Note Update
Patient currently undergoing dialysis. He is scheduled for open reduction internal fixation left hip fracture later this morning with Dr. Mcdonald. Remain n.p.o. for now and Silke on-call to operating room. Surgical location and consents signed.
[2024-10-21 08:10] LABS: Glucose - Point of Care 78 mg/dl (70-99)
[2024-10-21] MEDS: RETACRIT 10000 UNITS IV (09:19)
[2024-10-21 09:23] LABS: Blood Urea Nitrogen 23 mg/dl (9-20); Calcium 7.7 mg/dl (8.4-10.2); Carbon Dioxide 30 mmol/L (22-30); Chloride 93 mmol/L (98-107); Estimated Creatinine Clearance 19 ml/min; Glucose 66 mg/dl (70-99); Potassium 4.4 mmol/L (3.5-5.1); Sodium 130 mmol/L (135-145)
[2024-10-21 11:37] LABS: Glucose - Point of Care 61 mg/dl (70-99)
[2024-10-21] MEDS: DEXTROSE 50% SYRINGE 12.5 GRAMS IV (11:40)
--- NOTE | 2024-10-21 11:55 | W.PN.NEPH.HD ---
Assessment
-
pt seen during HD
vitals stable
UF as tolerates
for OR after HD
AVF functions well
Progress Note - Hemodialysis
-
Date of Service: October 21, 2024
Duration: 30 minutes and 3 hours
Potassium Bath: 2
Calcium Bath: 2.5
Opti-Dialyzer: 160
Ultrafiltration: Other (2-2.5kg)
Blood Flow: 400
Dialysate Flow: 600
Heparin: no
EPO: [id number]
--- NOTE | 2024-10-21 12:00 | PTCARENOTE ---
Pt finished HD. Accu check 61. Pt asymptomatic. 1/2 amp of D50 given and repeat accu check 98. Report given to Purvi in OR. Will call for transport to OR.
[2024-10-21 12:03] LABS: Glucose - Point of Care 98 mg/dl (70-99)
--- NOTE | 2024-10-21 12:22 | W.PN.HOSP.TC ---
Today's Communication/Plan
-
OR today
Assessment / Plan
Assessment / Plan
General in no acute distress, appears chronically ill
HEENT-neck is supple trach is midline. Suspected cataracts
Cardiac S1-S2 positive for murmur
Lungs clear to auscultation anteriorly
Abdomen positive bowel sound soft nondistended nontender
Extremities bilateral lower extremity dry skin. Significant bilateral lower extremity edema, worse on the left
MSK Left shortened leg internally rotated. Left upper extremity AV fistula.
Psych calm but easily gets agitated.
Neuro awake. Did not cooperate for complete neurological examination. Suspected cognitive impairment
ESRD on hemodialysis
Chronic hypotension
Hyperkalemia
Plan for hemodialysis per nephrology
Continue with midodrine
HD schedule per nephrology. Blood pressure holding. Plan for volume removal on dialysis.
Acute Left femur fracture
Check EKG-noted with severely prolonged QTc
Repeat EKG on 10/17 with normal sinus rhythm with first-degree AV block. Nonspecific T wave abnormality. QTc 487 significantly improved from admission.
Otherwise patient without any coronary artery disease, diabetes mellitus. History of end-stage renal disease on dialysis. Patient is wheelchair-bound and unclear to stratify mobility. Patient is intermediate risk for intermediate surgery for
medically necessary surgery and can proceed and monitor closely postop.
Bedrest till evaluation by orthopedic
Awaiting surgery today after dialysis.
Bilateral lower extremity Doppler ultrasound negative for DVT.
Hypoglycemia -check a.m. cortisol.
Hypoglycemia noted on BMP
Recommend Accu-Cheks
Patient mentating appropriately.
Hypoglycemia protocol.
Encourage feeding and assistance w/ feeding
Schizophrenia disorder
QTc is improving. Can slowly restart sertraline and plaquenil in 24 to 48 hours.
Continue with Ativan
If further medication needed can uptitrate Ativan and may need to consider psych evaluation
Repeat EKG with stable QTc of 469. Restart Seroquel on high dose 100mg AM/200mg PM.
Sacral stage IV pressure injury present on admission
Bilateral buttocks ulcer suspected stage III PI POA
Blood cultures negative. Stop IV antibiotics.
Wound consult
Chronic anemia due to ESRD
Trend hemoglobin. IV iron and EPO per nephrology
Transfuse with hemoglobin less than 7
Chronic HFpEF
Severe valvular tricuspid regurgitation
Pulmonary hypertension
Echo 10/17 with normal left ventricular chamber size and systolic function. Normal regional wall motion. EF 55/60%. Stage III diastolic dysfunction. Moderate to severe tricuspid regurgitation. PASP of 83 mmHg.
Secondary hyperparathyroidism
Continue with Phos binder
Essential HTN
Hold lopressor for now
Cont with cardizem with hold parameters
Chronic vision problem/cataracts
DVT prophylaxis SCDs
Full code
Anticipated Discharge: > 48 hours
Subjective/Interval History
-
Date of Service: October 21, 2024
Patient seen and examined. No complaints.
Objective Data
-
Labs:
Laboratory Results
10/21/24 10/21/24
07:01 08:00
WBC Pending
Hgb Pending
Hct Pending
Plt Count Pending
Sodium 130 L
Potassium 4.4
Chloride 93 L
Carbon Dioxide 30
BUN 23 H
Creatinine 3.7 H
Glucose 66 L
Calcium 7.7 L
Vital Signs:
Vital Signs
Temp Pulse Resp BP Pulse Ox
98.3 F 103 20 107/57 96
10/21/24 11:15 10/21/24 11:15 10/21/24 11:15 10/21/24 11:15 10/21/24 11:15
I&O
10/20/24 10/21/24 10/22/24
06:59 06:59 06:59
Intake Total 1320 / 1320 720 / 720
Output Total 0 / 0
Balance 1320 / 1320 720 / 095
Review of Systems
-
History Source: Patient
All other systems: Reviewed and negative
--- NOTE | 2024-10-21 13:41 | CM ---
Patient seen at bedside earlier. Patient for OR today per nursing. Patient to return to [facility] and will need auth prior to return. [facility] requesting auth for patient to return, per chart review; will need PT/OT orders: ANÍBALI [facility]:
[id number], Dr. Reynolds: [id number]. CM will continue to follow for discharge planning needs.
Plan; return to SNF; will need authorization. will need updated pt/ot s/p surgery
[2024-10-21 13:48] LABS: Glucose - Point of Care 44 mg/dl (70-99)
[2024-10-21 13:53] LABS: Cortisol, Random 13.4 ug/dl
[2024-10-21 14:27] LABS: Glucose - Point of Care 108 mg/dl (70-99)
[2024-10-21 15:54] LABS: Glucose - Point of Care 77 mg/dl (70-99)
[2024-10-21 16:53] LABS: Hematocrit 24.5 % (39.0-52.0); Hemoglobin 7.7 g/dL (13.0-18.0)
[2024-10-21 17:09] LABS: Glucose - Point of Care 75 mg/dl (70-99)
--- NOTE | 2024-10-21 17:17 | PTCARENOTE ---
Pt arrived to [facility] [address] from PACU s/p L HIP ORIF. Pt dressing C/D/I, NV intact. Pt oriented to call harris and room, bed locked and in lowest position, call harris within reach.
[2024-10-21] MEDS: ProAmatine PO ×2 (17:20)
[2024-10-21] MEDS: COLACE 100 MG PO (20:36)
[2024-10-21] MEDS: SENSIPAR 60 MG PO (20:36)
[2024-10-21] MEDS: SENOKOT-S 1 TABLET PO (20:36)
[2024-10-21] MEDS: CARDIZEM SR 60 MG PO (20:36)
[2024-10-21] MEDS: RENVELA 800 MG PO (22:02)
[2024-10-21] MEDS: ATIVAN 0.5 MG PO (22:02)
[2024-10-21] MEDS: SEROQUEL 200 MG PO (22:02)
[2024-10-22 01:58] LABS: Glucose - Point of Care 83 mg/dl (70-99)
[2024-10-22 03:15] VITALS: BP 112/87
[2024-10-22 06:00] VITALS: BMI 25.9
[2024-10-22 07:52] LABS: Glucose - Point of Care 111 mg/dl (70-99)
[2024-10-22 08:14] VITALS: BP 117/54
[2024-10-22 09:49] VITALS: BP 105/81; PULSE 100
[2024-10-22 10:20] LABS: % Basophils 0.1 % (0-2); % Immature Granulocytes 0.6 % (0-0.5); % Monocytes 7.5 % (1.7-9.3); % Neutrophils 86.8 % (42.2-75.2); Absolute Immature Granulocytes 0.1 10^3/uL (0-0.05); Absolute Lymphocytes 0.5 10^3/uL (1.2-3.4); Absolute Monocytes 0.7 10^3/uL (0.1-0.6); Absolute Neutrophils 8.1 10^3/uL (1.4-6.5); Hematocrit 24.8 % (39.0-52.0); Hemoglobin 7.5 g/dL (13.0-18.0); Mean Corp Hgb Conc. 30.2 g/dL (33.0-37.0); Mean Corpuscular Hgb 28.3 pg (27.0-31.0); Mean Corpuscular Volume 93.6 fL (80.0-94.0); Nucleated Red Blood Cells % 0 % (-); Platelet Count 248 10^3/uL (130-400); Red Blood Cell Count 2.65 10^6/uL (4.70-6.10); Red Cell Dist. Width 16.3 % (11.5-14.5); White Blood Cell Count 9.4 10^3/uL (4.8-10.8)
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
[2024-10-22] MEDS: DILAUDID 0.25 MG IV (11:15)
[2024-10-22] MEDS: CARDIZEM SR 60 MG PO (11:21)
[2024-10-22] MEDS: SENSIPAR 60 MG PO ×2 (11:21→20:50)
[2024-10-22] MEDS: ATIVAN 0.5 MG PO ×3 (11:26→21:04)
[2024-10-22] MEDS: SEROQUEL 100 MG PO (11:26)
[2024-10-22] MEDS: COLACE 100 MG PO ×2 (11:26→20:50)
[2024-10-22 11:27] VITALS: BP 117/88
[2024-10-22] MEDS: ProAmatine 5 MG PO (11:27)
[2024-10-22] MEDS: RENVELA 800 MG PO ×3 (11:27→21:04)
[2024-10-22] MEDS: PROTONIX 40 MG PO (11:27)
[2024-10-22] MEDS: SENOKOT-S 1 TABLET PO ×2 (11:28→20:50)
[2024-10-22] MEDS: LIPITOR 20 MG PO (11:28)
[2024-10-22] MEDS: HYDROPHOR 1 APPLIC TOPICAL (11:29)
[2024-10-22] MEDS: SILVADENE 1 APPLIC TOPICAL (11:29)
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
--- NOTE | 2024-10-22 13:22 | W.PN.NEPH.PH ---
Today's Communication / Plan
-
possible HD tomorrow based on his dispo plan
Assessment/Plan
-
Impression:
Left intratrochanteric hip fracture
ESRD Sunday at [facility]
Hypotension history
Hyperkalemia
Anemia of chronic kidney disease
Secondary hyperparathyroidism
Sacral decubitus
Hyperphosphatemia
Left upper extremity AV fistula
Congestive heart failure
Plan:
Patient presents to hospital due to refusal for dialysis but incidentally found to have left hip fracture (suspected fall at [facility])
s/p ORIF on 10/21, last HD yesterday
plan HD tomorrow if pt is for d/c
Maintain fluid restriction of 1200 cc daily as well as low sodium and potassium diet
cont midodrine in setting of chronic hypotension
vol status seem stable on RA
WIL therapy to provided for anemia
Maintain sevelamer for hyperphosphatemia and Cinacalcet for secondary hyperparathyroidism
-
-
Date of Service: October 22, 2024
CC / HPI / ROS
-
Chief Complaint:
ESRD
History of Present Illness:
Femur fracture
no fever, hb 7.5
BP stable
Review of Systems:
No nausea vomiting
left hip pain-refuses to touching in legs
poor historian
Labs
-
Labs:
WBC 9.4 10^3/uL (4.8-10.8) 10/22/24 09:36
RBC 2.65 10^6/uL (4.70-6.10) L 10/22/24 09:36
Hgb 7.5 g/dL (13.0-18.0) L 10/22/24 09:36
Hct 24.8 % (39.0-52.0) L 10/22/24 09:36
Plt Count 248 10^3/uL (130-400) 10/22/24 09:36
Sodium 130 mmol/L (135-145) L 10/21/24 08:00
Potassium 4.4 mmol/L (3.5-5.1) 10/21/24 08:00
Chloride 93 mmol/L (98-107) L 10/21/24 08:00
Carbon Dioxide 30 mmol/L (22-30) 10/21/24 08:00
BUN 23 mg/dl (9-20) H 10/21/24 08:00
Creatinine 3.7 mg/dL (0.7-1.3) H 10/21/24 08:00
eGFR 19.20 10/21/24 08:00
Glucose 66 mg/dl (70-99) L 10/21/24 08:00
Calcium 7.7 mg/dl (8.4-10.2) L 10/21/24 08:00
Albumin 2.9 g/dl (3.5-5.0) L 10/19/24 08:10
Physical Exam
-
Vital Signs:
Vital Signs
Temp Pulse Resp BP Pulse Ox
98.1 F 92 20 117/54 97
10/22/24 11:27 10/22/24 11:27 10/22/24 11:27 10/22/24 11:27 10/22/24 11:27
Cardiovascular:: Regular rate and rhythm
Respiratory:: Bilateral: CTA (anteriorly)
Lung Excursion:: Normal
Abdomen:: Nontender and Soft
Extremity Edema:: +1: Bilateral: (chronic)
Mueller Catheter: No
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
[2024-10-22] MEDS: FIBERCON PO (14:07)
[2024-10-22] MEDS: ProAmatine PO ×2 (15:11→18:07)
[2024-10-22] MEDS: TYLENOL 650 MG PO (15:17)
[2024-10-22 15:48] VITALS: BP 164/62
[2024-10-22 16:49] LABS: Glucose - Point of Care 103 mg/dl (70-99)
[2024-10-22] MEDS: CARDIZEM SR PO (20:55)
[2024-10-22] MEDS: NEURONTIN 100 MG PO (20:58)
[2024-10-22] MEDS: SEROQUEL 200 MG PO (21:04)
[2024-10-22 23:18] LABS: Glucose - Point of Care 86 mg/dl (70-99)
[2024-10-22 23:45] VITALS: BP 109/48
[2024-10-23 03:19] VITALS: BP 116/64
[2024-10-23 06:00] VITALS: BMI 26.5
--- NOTE | 2024-10-23 07:00 | W.PN.ORTHO ---
Today's Communication / Plan
-
49-year-old male POD #2 Left Hip ORIF ([place]) 10/21/[address] Mcdonald.
- If deemed medically safe, may be WBAT B/L LEs on walker/assistance.
- Hemoglobin yesterday 7.5. Hemoglobin this AM pending. Continue to monitor.
- DVT ppx per primary team considering ESRD, ASA 325mg daily x 4 weeks if OK.
- PT/OT.
- Appreciate the primary team, continue Tx.
- Dispo per CM, appreciate their efforts.
- Ice to left hip/pain control per primary team.
- Attempted to change dressing this morning, however this was declined by the patient.
- Aquacel dressing to remain for 7 to 10 days postop. Staple removal at 2 weeks postop. If floresita removed at [facility], then follow-up as outpatient 4 weeks postop.
- Orthopedic Surgery will sign off at this time. Please reengage with any further questions or concerns.
Assessment
.
Distal Motor Intact: Yes
Dressing:
Aquacel dressing intact with contained bloody drainage. Patient declined dressing change today.
Calf is soft and nontender to palpation.
NVI distally.
Assessment:
POD #2 Left Hip ORIF utilizing [employer] [place] sliding hip screw.
Plan
.
Surgery / Date: Left Hip ORIF Oct 21 (Harry)
DVT Prophylaxis: Other (Per Primary Team)
Activity:
Out of bed.
PT/OT
Discharge Plan: Other
Discharge Information:
Appreciate CM.
Subjective
.
.:
Patient resting comfortably in bed. Reports left hip pain controlled at this time. Denies any new complaints or concerns at this time.
Vital Signs and Labs
.
Vital Signs and Labs:
Lab Results
10/21/24 08:00
Temp Pulse Resp BP Pulse Ox
97.6 F 95 18 116/64 100
10/22/24 23:45 10/23/24 03:19 10/23/24 03:19 10/23/24 03:19 10/23/24 03:19
[2024-10-23 07:08] LABS: Glucose - Point of Care 75 mg/dl (70-99)
[2024-10-23 08:00] VITALS: BP 174/78
[2024-10-23] MEDS: ProAmatine PO ×3 (09:01→18:28)
[2024-10-23] MEDS: SENSIPAR 60 MG PO ×2 (09:04→20:46)
[2024-10-23] MEDS: LIPITOR 20 MG PO (09:04)
[2024-10-23] MEDS: COLACE 100 MG PO ×2 (09:04→20:45)
[2024-10-23] MEDS: CARDIZEM SR 60 MG PO ×2 (09:04→20:44)
[2024-10-23] MEDS: FIBERCON 625 MG PO (09:05)
[2024-10-23] MEDS: PROTONIX 40 MG PO (09:05)
[2024-10-23] MEDS: RENVELA 800 MG PO ×2 (09:05→20:46)
[2024-10-23] MEDS: HYDROPHOR 1 APPLIC TOPICAL (09:06)
[2024-10-23] MEDS: SEROQUEL 100 MG PO (09:06)
[2024-10-23] MEDS: ATIVAN 0.5 MG PO ×2 (09:06→21:18)
[2024-10-23] MEDS: SENOKOT-S 1 TABLET PO ×2 (09:06→20:49)
[2024-10-23] MEDS: SILVADENE 1 APPLIC TOPICAL (09:07)
--- NOTE | 2024-10-23 09:43 | W.PN.NEPH.PH ---
Today's Communication / Plan
-
dialysis today with outpatient Sunday
Assessment/Plan
-
Impression:
Left intratrochanteric hip fracture
ESRD Sunday at [facility]
Hypotension history
Hyperkalemia
Anemia of chronic kidney disease
Secondary hyperparathyroidism
Sacral decubitus
Hyperphosphatemia
Left upper extremity AV fistula
Congestive heart failure
Plan:
Patient presents to hospital due to refusal for dialysis but incidentally found to have left hip fracture (suspected fall at skilled nursing)
s/p ORIF on 10/21,
Maintain fluid restriction of 1200 cc daily as well as low sodium and potassium diet
cont midodrine in setting of chronic hypotension
vol status seem stable on RA
WIL therapy to provided for anemia
Maintain sevelamer for hyperphosphatemia and Cinacalcet for secondary hyperparathyroidism
-
-
Date of Service: October 23, 2024
CC / HPI / ROS
-
Chief Complaint:
ESRD
History of Present Illness:
Femur fracture
no fever, hb 7.5
BP stable
Review of Systems:
No nausea vomiting
left hip pain-refuses to touching in legs
poor historian
Labs
-
Labs:
Sodium 130 mmol/L (135-145) L 10/21/24 08:00
Potassium 4.4 mmol/L (3.5-5.1) 10/21/24 08:00
Chloride 93 mmol/L (98-107) L 10/21/24 08:00
Carbon Dioxide 30 mmol/L (22-30) 10/21/24 08:00
BUN 23 mg/dl (9-20) H 10/21/24 08:00
Creatinine 3.7 mg/dL (0.7-1.3) H 10/21/24 08:00
eGFR 19.20 10/21/24 08:00
Glucose 66 mg/dl (70-99) L 10/21/24 08:00
Calcium 7.7 mg/dl (8.4-10.2) L 10/21/24 08:00
Albumin 2.9 g/dl (3.5-5.0) L 10/19/24 08:10
Physical Exam
-
Vital Signs:
Vital Signs
Temp Pulse Resp BP Pulse Ox
97.3 F 101 18 174/78 99
10/23/24 08:00 10/23/24 09:04 10/23/24 08:00 10/23/24 09:04 10/23/24 08:00
Cardiovascular:: Regular rate and rhythm
Respiratory:: Bilateral: CTA (anteriorly)
Lung Excursion:: Normal
Abdomen:: Nontender and Soft
Extremity Edema:: +1: Bilateral: (chronic)
Mueller Catheter: No
--- NOTE | 2024-10-23 10:29 | W.PN.UPDATE ---
Addendum entered and electronically signed by Henrique Polanco MD 10/23/24 10:35:
asked pharmacy to check if one of his other medications could prolong qtc ativan prn should be max twice daily. if he needs it more will consider using a different antipsychotic but i am reluctant to change it while he is here not knowing his hx.
Original Note:
Update Note
Progress Note Update
reviewed chart will see patient shortly. noted qtc has been prolonged this admit going from 565 to 487 to 469 now. seroquel can prolong qtc as can iv haldol. for now since qtc is 469 will leave seroques as is keeping in mind potential for long
qtc and dc haldol ivprn which can also prolong qtc use ativan prn agitation or anxiety.
--- NOTE | 2024-10-23 11:30 | W.PN.UPDATE ---
Update Note
Progress Note Update
patient seen chart reviewed. discussed with nursing. mr kent was not amenable to much of an interaction. i attempted to talk w him but he became impatient when i could not understand him. i went to get his nurse and he told her what he wanted
was 'three ice creams and cookies' he then looked and me at said he didnot want to talk w me. i had attempted to ask him about his psychotropic medications but he was not amenable to talking about that particular subject. see my previous note. i
suspect he is not a person who easily converses with others given his schizophrenia dx. mr kent resides at [facility] and is a dialysis patient. nursing tells me he is cooperative generally although he can be irritable at times. for now did
not change seroquel. see my note preceding this re concerns w qtc. would just follow qtc. would also consider whether he is on other 'medical ' meds that could further prolong qtc.
[2024-10-23 12:00] VITALS: BP 161/76
--- NOTE | 2024-10-23 12:15 | W.PN.HOSP.TC ---
Today's Communication/Plan
-
Discharge planning
Assessment / Plan
Assessment / Plan
Gen-awake, alert, NAD
HEENT-NC, AT, anicteric, clear oral mm
Neck-supple
CV-reg, no M, +S1/S2
Lungs-clear B/L
Abd-soft, NT, ND
Ext-bilateral lower extremity edema
Musculoskeletal-no cyanosis, clubbing
Skin-warm and dry
Neuro-grossly non-focal
Psych-calm, cooperative
ESRD on hemodialysis
Chronic hypotension
Hyperkalemia
Plan for hemodialysis per nephrology
Continue with midodrine
HD schedule per nephrology. Blood pressure holding. Plan for volume removal on dialysis.
Acute Left femur fracture -stable after open reduction internal fixation 10/21.
Bilateral lower extremity Doppler ultrasound negative for DVT.
Hypoglycemia -glucose 75 this morning. Random cortisol 13.4. Doubt adrenal insufficiency. TSH 3.8.
Encourage feeding and assistance w/ feeding
Schizophrenia disorder
QTc is improving. Can slowly restart sertraline and plaquenil in 24 to 48 hours.
Continue with Ativan
If further medication needed can uptitrate Ativan and may need to consider psych evaluation
Repeat EKG with stable QTc of 469. Restart Seroquel on high dose 100mg AM/200mg PM.
Sacral stage IV pressure injury present on admission
Bilateral buttocks ulcer suspected stage III PI POA
Blood cultures negative. Stop IV antibiotics.
Wound consult
Chronic anemia due to ESRD
Trend hemoglobin. IV iron and EPO per nephrology
Transfuse with hemoglobin less than 7. Hemoglobin stable so far.
Chronic HFpEF
Severe valvular tricuspid regurgitation
Pulmonary hypertension
Echo 10/17 with normal left ventricular chamber size and systolic function. Normal regional wall motion. EF 55/60%. Stage III diastolic dysfunction. Moderate to severe tricuspid regurgitation. PASP of 83 mmHg.
Secondary hyperparathyroidism
Continue with Phos binder
Essential HTN
Hold lopressor for now
Cont with cardizem with hold parameters
Chronic vision problem/cataracts
DVT prophylaxis SCDs
Full code
Dispo -back to [facility] once insurance authorization obtained. PT/OT.
Anticipated Discharge: Within 24 hours
Subjective/Interval History
-
Date of Service: October 23, 2024
Patient seen/examined. Asking for mac & cheese. No complaints.
Objective Data
-
Vital Signs:
Vital Signs
Temp Pulse Resp BP Pulse Ox
97.3 F 101 18 174/78 95
10/23/24 08:00 10/23/24 09:04 10/23/24 08:00 10/23/24 09:04 10/23/24 08:00
I&O
10/22/24 10/23/24 10/24/24
06:59 06:59 06:59
Intake Total 770 / 770 720 / 720
Balance 770 / 770 720 / 720
Review of Systems
-
History Source: Patient
All other systems: Reviewed and negative
[2024-10-23 12:25] LABS: Glucose - Point of Care 183 mg/dl (70-99)
--- NOTE | 2024-10-23 15:13 | CM ---
Pt for discharge tomorrow
Spoke with Beth at [facility] - [phone]
Can accept but will need auth
Spoke with Haylee at [facility] [employer] - instructed to go to website to obtain auth form [id number]
Auth form completed and faxed with clinical information to
Dr Diaz updated
Plan - transfer to [facility] when medically ready and auth obtained
[2024-10-23 16:00] VITALS: BP 107/66
--- NOTE | 2024-10-23 16:08 | PTCARENOTE ---
pt refused diaylsis and blood work for today, Dr Diaz notified
[2024-10-23] MEDS: RENVELA PO (17:32)
[2024-10-23] MEDS: ATIVAN PO (17:32)
[2024-10-23 20:43] VITALS: BP 120/57
[2024-10-23 20:44] LABS: Glucose - Point of Care 84 mg/dl (70-99)
[2024-10-23] MEDS: SEROQUEL 200 MG PO ×2 (20:45→20:46)
--- NOTE | 2024-10-23 22:22 | PTCARENOTE ---
Patient uncooperative regards to care, demanding, and verbally aggressive towards this RN and fellow nurses.
[2024-10-23 23:19] VITALS: BP 147/65
[2024-10-24] VITALS (8 sets, daily range): BP systolic 109–145; BP diastolic 49–73; BMI 25.9
--- NOTE | 2024-10-24 06:17 | PTCARENOTE ---
Copious serous fluid weeping from patient's left hip incision. Incision approximated, floresita intact. Dressing changed.
[2024-10-24 07:13] LABS: Glucose - Point of Care 77 mg/dl (70-99)
[2024-10-24] MEDS: ATIVAN 0.5 MG PO ×2 (08:28→15:33)
[2024-10-24] MEDS: FIBERCON 625 MG PO (08:28)
[2024-10-24] MEDS: SEROQUEL 100 MG PO (08:28)
[2024-10-24] MEDS: LIPITOR 20 MG PO (08:28)
[2024-10-24] MEDS: SENSIPAR 60 MG PO (08:28)
[2024-10-24] MEDS: SENOKOT-S 1 TABLET PO (08:28)
[2024-10-24] MEDS: PROTONIX 40 MG PO (08:28)
[2024-10-24] MEDS: RENVELA 800 MG PO ×2 (08:28→15:33)
[2024-10-24] MEDS: ProAmatine PO ×2 (08:29→12:45)
[2024-10-24] MEDS: CARDIZEM SR 60 MG PO (08:29)
[2024-10-24] MEDS: COLACE 100 MG PO (08:29)
[2024-10-24] MEDS: HYDROPHOR 1 APPLIC TOPICAL (08:31)
[2024-10-24] MEDS: SILVADENE TOPICAL (08:53)
[2024-10-24 11:40] LABS: Glucose - Point of Care 142 mg/dl (70-99)
--- NOTE | 2024-10-24 12:08 | W.PN.HOSP.TC ---
Today's Communication/Plan
-
Discharge planning
Assessment / Plan
Assessment / Plan
Gen-awake, alert, NAD
HEENT-NC, AT, anicteric, clear oral mm
Neck-supple
CV-reg, no M, +S1/S2
Lungs-clear B/L
Abd-soft, NT, ND
Ext-bilateral lower extremity edema
Musculoskeletal-no cyanosis, clubbing
Skin-warm and dry
Neuro-grossly non-focal
Psych-calm, cooperative
ESRD on hemodialysis
Chronic hypotension
Hyperkalemia
Plan for hemodialysis per nephrology
Continue with midodrine
HD schedule per nephrology. Blood pressure holding. Plan for volume removal on dialysis.
Acute Left femur fracture -stable after open reduction internal fixation 10/21.
Bilateral lower extremity Doppler ultrasound negative for DVT.
Hypoglycemia -glucose 75 this morning. Random cortisol 13.4. Doubt adrenal insufficiency. TSH 3.8.
Encourage feeding and assistance w/ feeding
Schizophrenia disorder
QTc is improving. Can slowly restart sertraline and plaquenil in 24 to 48 hours.
Continue with Ativan
If further medication needed can uptitrate Ativan and may need to consider psych evaluation
Repeat EKG with stable QTc of 469. Restart Seroquel on high dose 100mg AM/200mg PM.
Sacral stage IV pressure injury present on admission
Bilateral buttocks ulcer suspected stage III PI POA
Blood cultures negative. Stop IV antibiotics.
Wound consult
Chronic anemia due to ESRD
Trend hemoglobin. IV iron and EPO per nephrology
Transfuse with hemoglobin less than 7. Hemoglobin stable so far.
Chronic HFpEF
Severe valvular tricuspid regurgitation
Pulmonary hypertension
Echo 10/17 with normal left ventricular chamber size and systolic function. Normal regional wall motion. EF 55/60%. Stage III diastolic dysfunction. Moderate to severe tricuspid regurgitation. PASP of 83 mmHg.
Secondary hyperparathyroidism
Continue with Phos binder
Essential HTN
Hold lopressor for now
Cont with cardizem with hold parameters
Chronic vision problem/cataracts
DVT prophylaxis SCDs
Full code
Dispo -back to [facility] once insurance authorization obtained. PT/OT. Medically stable for discharge. Case management aware.
Anticipated Discharge: Today
Subjective/Interval History
-
Date of Service: October 24, 2024
Patient seen/examined. No complaints.
Objective Data
-
Labs:
Laboratory Results
10/24/24
11:57
Hgb Pending
Hct Pending
Sodium Pending
Potassium Pending
Chloride Pending
Carbon Dioxide Pending
Vital Signs:
Vital Signs
Temp Pulse Resp BP Pulse Ox
97.7 F 100 18 125/49 90
10/24/24 11:48 10/24/24 11:48 10/24/24 11:48 10/24/24 11:48 10/24/24 11:48
I&O
10/23/24 10/24/24 10/25/24
06:59 06:59 06:59
Intake Total 720 / 720 720 / 720
Balance 720 / 720 720 / 720
Review of Systems
-
History Source: Patient
All other systems: Reviewed and negative
--- NOTE | 2024-10-24 12:19 | W.PN.UPDATE ---
Update Note
Progress Note Update
mr kent has continued to be irritated and irritable refusing dialysis yesterday. nursing tells me he is variously cooperative. he is however accepting of dialysis today. dialysis nurse seemed to think maybe he refused yesterday as it was a
nurse he did not know. i had considered whether he needs zoloft . initially i did not think so but perhaps the zoloft which is a small dose 25 mg helps him to be less irritable. 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 for now psych will sign off unless you call us to return. it is my impression that he does better with fewer faces in the room that are familiar to him.
--- NOTE | 2024-10-24 12:24 | W.PN.NEPH.HD ---
Assessment
-
Seen on HD. no complaints. VSS, access ok
for dc
Progress Note - Hemodialysis
-
Date of Service: October 24, 2024
Duration: 30 minutes and 3 hours
Potassium Bath: 2
Calcium Bath: 2.5
Opti-Dialyzer: 160
Ultrafiltration: Other (2kg)
Blood Flow: 400
Dialysate Flow: 600
Heparin: no
EPO: 94886 units
--- NOTE | 2024-10-24 12:39 | CM ---
Addendum entered by Gloria Acosta 10/24/24 15:15:
Auth # - [id number]
Transport at 1900 - facility and family made aware
Discussed IMM with pts aunt
Addendum entered by Gloria cAosta 10/24/24 12:55:
Spoke with Isabel from [facility] and [employer]
Auth approved - 10/24-11/04
NRD 11/04 - fax to [phone]
Updated Beth at [facility]
Original Note:
Pt medically ready for discharge
Spoke with Beth at [facility] - aware auth remains pending. Can accept with pending auth
Dr Diaz updated
Plan - transfer to [facility]
R - [phone] - ask for [facility]
f - [phone]
--- NOTE | 2024-10-24 12:40 | W.DS.TRANS ---
DC Summary - [employer]
-
Discharge Instructions:
Discharge Diagnosis/Procedures Left femur fracture, ESRD, chronic anemia
Diet 2 Gram Sodium,Other diet
Additional Diets 2 Gram potassium, 50 ounce fluid restriction
Activity As tolerated,With assistance
Driving Restrictions No driving
Bathing Restrictions None
Instructions:
Stand-Alone Forms:
Changes to Home Medications: No
Discharge Medications:
DC Medications w/original date entered in [employer]
acetaminophen 325 mg tablet (Tylenol) 650 mg PO Q6HPRN PRN mild pain 10/16/24
atorvastatin 20 mg tablet (Lipitor) 20 mg PO DAILY High Cholesterol 10/16/24
bisacodyl 10 mg rectal suppository (Dulcolax (bisacodyl)) 10 mg [place] DAILYPRN PRN if no bm aftr mom 10/16/24
calcium polycarbophil 625 mg tablet (FiberCon) 625 mg PO DAILY Constipation 10/16/24
cinacalcet 60 mg tablet 60 mg PO BID Thyroid 10/16/24
diltiazem HCl 60 mg tablet 60 mg PO BID Heart Disease/Condition 10/16/24
gabapentin 100 mg capsule 100 mg PO [email or web address] Neurological Condition 10/16/24
hydroxychloroquine 200 mg tablet (Plaquenil) 200 mg PO HS Autoimmune Disorder 10/16/24
lorazepam 0.5 mg tablet 0.5 mg PO TID Mental Health/Anxiety 10/16/24
metoprolol tartrate 50 mg tablet (Lopressor) 50 mg PO BID Blood Pressure 10/16/24
midodrine 5 mg tablet 5 mg PO TID Blood Pressure 10/16/24
midodrine 5 mg tablet 5 mg PO TIDPRN PRN low bp 10/16/24
omeprazole 40 mg capsule,delayed release 40 mg PO DAILY Gastrointestinal Issue 10/16/24
polyethylene glycol 3350 17 gram oral powder packet (Miralax) 17 g PO DAILYPRN PRN constipation 10/16/24
quetiapine 100 mg tablet (Seroquel) 100 mg PO DAILY Mental Health/Anxiety 10/16/24
quetiapine 200 mg tablet 200 mg PO HS Mental Health/Anxiety 10/16/24
sertraline 25 mg tablet 25 mg PO DAILY Mental Health/Anxiety 10/16/24
sevelamer carbonate 800 mg tablet 800 mg PO TID Phosphate Binder 10/16/24
silver sulfadiazine 1 % topical cream (Silvadene) 1 applic topical DAILY b/l lower extremeti 10/16/24
docusate sodium 100 mg capsule 100 mg PO BID #0 caps 10/23/24
Home Medication Changes
Pending Results: No
[2024-10-24] MEDS: RETACRIT 10000 UNITS IV (13:13)
[2024-10-24 13:21] LABS: Carbon Dioxide 29 mmol/L (22-30); Chloride 90 mmol/L (98-107); Potassium 4.8 mmol/L (3.5-5.1); Sodium 127 mmol/L (135-145)
[2024-10-24 13:30] LABS: Hematocrit 20.1 % (39.0-52.0); Hemoglobin 6.3 g/dL (13.0-18.0)
[2024-10-24] MEDS: ProAmatine 5 MG PO ×2 (14:06→17:25)
[2024-10-24 15:35] LABS: Glucose - Point of Care 87 mg/dl (70-99)
[2024-10-24] MEDS: TYLENOL 650 MG PO (16:18)
== END 2024-10-24 19:18 | DRG 535 ==
LOC: 2 SOUTH 18:17
PROVIDERS: Internal Medicine; Internal Medicine Nephrology; Nurse Practitioner Family; Physician Assistant; Specialist; ADMITTING PHYSICIAN Hospitalist; ATTENDING PHYSICIAN Hospitalist; CONSULT PHYSICIAN Orthopaedic Surgery; CONSULT PHYSICIAN Psychiatry & Neurology Psychiatry; CONSULT PHYSICIAN Specialist; EMERGENCY PHYSICIAN Emergency Medicine; FAMILY PHYSICIAN Internal Medicine
PROC: 5A1D70Z Performance of Urinary Filtration, Intermittent, Less than 6 Hours Per Day (ICD-10-PCS; 2024-10-17)
DX: S72.142A Displaced intertrochanteric fracture of left femur, initial encounter for closed fracture (principal); L89.154 Pressure ulcer of sacral region, stage 4; L89.323 Pressure ulcer of left buttock, stage 3; L89.313 Pressure ulcer of right buttock, stage 3; N18.6 End stage renal disease; R64 Cachexia; Z99.2 Dependence on renal dialysis; E87.5 Hyperkalemia; F20.9 Schizophrenia, unspecified; D63.1 Anemia in chronic kidney disease; E16.2 Hypoglycemia, unspecified; G80.9 Cerebral palsy, unspecified; G62.9 Polyneuropathy, unspecified; Y92.129 Unspecified place in nursing home as the place of occurrence of the external cause; W19.XXXA Unspecified fall, initial encounter; Z68.25 Body mass index [BMI] 25.0-25.9, adult
CPT/HCPCS: 71045; 73502; 73564; 76000; 80048; 80051; 80053; 82533; 82962; 84443; 85014; 85018; 85025; 85027; 86850; 86900; 86901; 86920; 87040; 87340; 93005; 93306; 93970; 96365; 97163; 97167; 97530; 99285; C1713; G0257; P9016; P9047; Q5106

== ENCOUNTER 2024-10-26 21:56 | Emergency (ER) | payer OTHER, SELFPAY ==
[2024-10-26] MEDS: SODIUM BICARBONATE 50 MEQ IV ×2 (22:01→22:02)
[2024-10-26] MEDS: CALCIUM CHLORIDE 10% SYRINGE 1000 MG IV ×2 (22:01)
[2024-10-26] MEDS: ADRENALIN 1 MG/10 ML IV ×3 (22:02→22:06)
--- NOTE | 2024-10-26 22:52 | ED.GENMED ---
History of Present Illness
General
Chief Complaint: CODE
Time Seen by Provider: 10/26/24 22:10
History of Present Illness
History of Present Illness:
49-year-old male with complex medical history including end-stage renal disease on hemodialysis, cerebral palsy, hypertension, pulmonary hypertension, schizophrenia, CHF presenting from [facility] for unresponsive state and
suspected cardiac arrest. Patient arrives by medics. They note that prior to their arrival, patient was last seen about 20 minutes ago by nursing staff. He was found unresponsive and pulseless. Medics started CPR, no shocks advised, PEA.
Patient received 8 rounds of epinephrine and route with no return of spontaneous circulation. No additional history obtained at this time given patient's clinical status
Phy Exam
Physical Exam
Physical Exam:
General: Unresponsive
HEENT: I-gel in place bag valve ventilation
Neck: appears supple
CV: No spontaneous cardiac activity
Resp: No spontaneous respiratory effort
Abd: No distention
Extremities: Severe peripheral vascular disease of the lower extremities and left upper extremity with left upper extremity AV fistula
Neuro: Unresponsive, blown pupils
: deferred
Rectal: deferred
Psych: Normal affect
Skin: Intact
Course
Orders/Labs/Results
Orders:
Orders
10/26/24 21:58
Complete Blood Count/With Diff Urgent
Comprehensive Metabolic Panel Urgent
Troponin I Urgent
10/26/24 22:01
Calcium CHLORIDE [Calcium Chloride 10% Syringe] 1,000 mg IV NOW STA
Calcium CHLORIDE [Calcium Chloride 10% Syringe] 1,000 mg IV NOW STA
Calcium CHLORIDE [Calcium Chloride 10% Syringe] 500 mg IV NOW STA
Sodium Bicarbonate 50 meq IV NOW STA
10/26/24 22:02
EPINEPHrine [Adrenalin 1 mg/10 ml] 1 mg IV NOW STA
Sodium Bicarbonate 50 meq IV NOW STA
10/26/24 22:03
EPINEPHrine [Adrenalin 1 mg/10 ml] 1 mg IV NOW STA
10/26/24 22:06
EPINEPHrine [Adrenalin 1 mg/10 ml] 1 mg IV NOW STA
Vital Signs
Initial and Last Documented VS:
Initial Vital Signs
Pulse Resp
102 60
10/26/24 22:03 10/26/24 22:03
Last Documented Vital Signs
Temp Pulse Resp
97.4 F 102 60
10/26/24 22:07 10/26/24 22:03 10/26/24 22:03
MDM/Problems Addressed
MDM/Problems Addressed:
49-year-old male with complex medical history including end-stage renal disease on hemodialysis, cerebral palsy, hypertension, pulmonary hypertension, schizophrenia, CHF presenting from [facility] for unresponsive state. No vitals
on arrival, pulses.
On exam patient is chronically unwell in appearance. Prolonged downtime with overall poor prognosis, received 8 rounds of epinephrine prior to arrival with PEA on the monitor. ACLS continued on arrival with compressions. Patient received
additional 3 doses of epinephrine, 2 doses of calcium with known history of end-stage renal disease and hemodialysis noncompliance, 2 doses of bicarb. Overall poor prognosis given comorbidities, downtime, PEA. For this reason, efforts ceased.
Time of 2206. Of note, patient did have recent hospitalization from 08/16 to 10/24 for hyperkalemia and noncompliance with dialysis. Patient received dialysis while he was here, also found to have a left hip fracture status postrepair.
22:15 - Did call mother, aware of circumstances and patient's passing.
22:30 -drapery examiner called, patient released to family. drapery examiner Oleg December. PCP is Goldy Reynolds.
*Critical Care Note
Total Time (30-74mins, 75-104mins- exclusive of procedures): 45
comment:
The high probability of a clinically significant, sudden or life threatening deterioration of the cardiopulmonary system(s) required my full and direct attention, intervention and personal management. The aggregate critical care time was 40 minutes.
This time is in addition to time spent performing reported procedures but includes the following:
[x] Data Review and interpretation
[x] Patient assessment and monitoring of vital signs
[x] Documentation
[x] Medication orders and management
ED Attending Note
-
Portions of this chart may have been created with voice recognition software.� Occasional wrong word or��sound alike� substitutions may have occurred due to the inherent limitations of voice recognition software.
Discharge Plan
Departure
Patient Disposition:
Date of Disposition: 10/26/24
Time of Disposition: 22:07
Discharge Problem:
Cardiac arrest
Prescriptions:
No Action
silver sulfadiazine [Silvadene] 1 % Cream
1 applic TOPICAL DAILY
acetaminophen [Tylenol] 325 mg Tablet
650 mg PO Q6HPRN PRN (Reason: mild pain)
atorvastatin [Lipitor] 20 mg Tablet
20 mg PO DAILY
polyethylene glycol 3350 [Miralax] 17 gram Powder In Packet
17 g PO DAILYPRN PRN (Reason: constipation)
quetiapine 200 mg Tablet
200 mg PO HS
midodrine 5 mg Tablet
5 mg PO TIDPRN PRN (Reason: low bp)
midodrine 5 mg Tablet
5 mg PO TID
omeprazole 40 mg Capsule,Delayed Release(Dr/Ec)
40 mg PO DAILY
lorazepam 0.5 mg Tablet
0.5 mg PO TID
bisacodyl [Dulcolax (bisacodyl)] 10 mg Suppository
10 mg NC DAILYPRN PRN (Reason: if no bm aftr mom)
calcium polycarbophil [FiberCon] 625 mg Tablet
625 mg PO DAILY
metoprolol tartrate [Lopressor] 50 mg Tablet
50 mg PO BID
sertraline 25 mg Tablet
25 mg PO DAILY
gabapentin 100 mg Capsule
100 mg PO MoWeFr@2000
hydroxychloroquine [Plaquenil] 200 mg Tablet
200 mg PO HS
diltiazem HCl 60 mg Tablet
60 mg PO BID
cinacalcet 60 mg Tablet
60 mg PO BID
sevelamer carbonate 800 mg Tablet
800 mg PO TID
quetiapine [Seroquel] 100 mg Tablet
100 mg PO DAILY
docusate sodium 100 mg Capsule
100 mg PO BID Qty: 0 0RF
Interventions
Interventions:
*Risk Screen - Suicide Last Done: 10/26/24 22:12
*General Assessment Last Done: 10/26/24 22:12
*Neglect/Abuse Screening Last Done: 10/26/24 22:12
*ED COVID-19 Vaccine History Last Done: 10/26/24 22:12
ED- Cardiac Assessment Last Done: 10/26/24 22:12
ED- Pulmonary Assessment Last Done: 10/26/24 22:12
Discharge Date and Time
Print Language: FIJIAN
--- NOTE | 2024-10-26 23:24 | EDRN ---
Pt arrives via EMS from [place]. Pt was last known normal 20 minutes prior to finding him down. EMS arrived and pt in PEA. SAROJ applied to pt. Epi x 8 given in route. Pt arrives intubated and Saroj in place. Snow at bedside. Pt was given
Calcium 1000mg x 2 @ 2200, Sodium BiCarb 50meq x 1 @ 2200, Epi 1mg x 1 @ 2201, Sodium BiCarb 50meq x 1 @ 2201, Epi 1mg x 1 @ 2203 and Epi 1mg x 1 @ 2205. Time of 2206.
== END 2024-10-26 22:07 | disposition expired ==
LOC: EMR 21:56
PROVIDERS: EMERGENCY PHYSICIAN Student in an Organized Health Care Education/Training Program
DX: I46.9 Cardiac arrest, cause unspecified (principal); N18.6 End stage renal disease; G80.9 Cerebral palsy, unspecified; F20.9 Schizophrenia, unspecified; I50.9 Heart failure, unspecified; I27.20 Pulmonary hypertension, unspecified; I13.2 Hypertensive heart and chronic kidney disease with heart failure and with stage 5 chronic kidney disease, or end stage renal disease
CPT/HCPCS: 99291; 96374; 96375 ×3